=== PATIENT | male | born 1950 | race Caucasian/White ===

== ENCOUNTER 2016-05-18 09:53 | Inpatient (IN) | payer MEDICARE ==
[2016-05-18] VITALS (11 sets, daily range): BP systolic 75–136; BP diastolic 42–101; PULSE 74–124; RESP 12–24; O2SAT 89–100
[~2016-05-18] VITALS: Ht 190.5 cm; Wt 147.8 kg
[~2016-05-18 09:53] MED LIST: ALBU8.5H2 INH; ASPI325T32 PO; ATRV10T PO; CLOP75TA28 PO; HYDR-4003 PO; LISI10TA PO; METO-272 PO; OXYC1TAB24 PO
[2016-05-18] MEDS ORDERED: 0.9% Sodium Chloride 1,000 ML IV SCH ×2 (10:20→14:20)
--- NOTE | 2016-05-18 10:24 | ED.REPORT ---
HPI-Chest Pain 40 and Over Date of Service May 18, 2016 ED Provider: Vinayak Marroquin MD Mr. Louis is a 66 y/o man with history of CAD, peripheral artery disease, and lacunar infarct who presents today for worsening shortness of breath and chest pain for the past 3-4 days. His chest pain is retrosternal and intermittent that will radiate his back. He is short of breath at rest. He does not have chest pain right now. He has left flank pain. He has associated cough, diaphoresis, and he vomited once this morning. He feels fatigued. His ex- is with him and states that he had been sick and not feeling well for the past 6 weeks and has not gotten better. He has not had an appetite for the past month. He does not have fever, chills, palpitations, abdominal pain, diarrhea, dysuria, hematuria, numbness, or tingling. He denies blood in his stool. Pt requested pain medication for left flank pain. He had a coronary artery stent placed on 03/31/2016 in his LAD. Echocardiogram done on 04/01/2016 shows EF 55-60% and no valvular pathology. Pt is full code. Nursing Notes Stated Complaint: NO APPETITE/FEELING SICK Chief Complaint: General Complaint Nursing Notes Reviewed: Yes Allergies: Coded Allergies: Beer (Verified Allergy, Severe, Anaphylaxis, 03/31/16) Raisin (Verified Allergy, Severe, Anaphylaxis, 03/31/16) [place] Seed (Verified Allergy, Severe, Anaphylaxis, 03/31/16) Wine Spirit (Verified Allergy, Severe, Anaphylaxis, 03/31/16) Uncoded Allergies: cheetos (Allergy, Severe, Anaphylaxis, 02/07/10) Scheduled Aspirin (Aspirin) 325 Mg Tablet 325 MG PO DAILY Atorvastatin (Lipitor) 10 Mg/1 Tab Tablet 40 MG PO HS Clopidogrel (Clopidogrel) 75 Mg Tablet 75 MG PO DAILY Lisinopril (Lisinopril) 10 Mg Tablet 10 MG PO DAILY Metoprolol Succinate ER (Metoprolol Succinate ER) 50 Mg Tab.er.24h 50 MG PO DAILY Scheduled PRN Albuterol HFA (Proair HFA) 8.5 Gm Hfa.aer.ad 2 PUFFS INH Q4H PRN PRN For Wheezing Hydrocodone-Acetaminophen 5-325 mg (Hydrocodone-Acetaminophen 5-325 mg) 1 Each Tablet 2 TAB PO QID PRN PRN For Pain Miscellaneous Medications Ferrous Sulfate (Iron) 325 Mg Capsule.er 325 MG PO General Time Seen by MD: 10:05 Chief Complaint Shortness of breath Hx Obtained From: Patient Sudden in Onset?: No Associated with: Reports: Cough, non-productive, Diaphoresis, Lightheaded, Shortness of Breath, Vomiting, Denies: Fever, Numbness/Tingling, Palpitations Past Medical History Past Medical History CAD (stent in LAD on 03/31/16) Mcdonald's Palsy Hypertension Diabetes Probable COPD Peripheral arterial disease with prior stenting (left femoral) Stroke (lacunar) Past Surgical History Right hip surgery Gastric bypass Back surgery Smoking History Former Smoker Social History Alcohol Use: "Social" Drug Use: Denies drug use Ambulatory Status Independent Review of Systems Basic Review of Systems : No dysuria, No frequency Hematologic: No bleeding, No bruising Constitutional: Reports: Fatigue, Denies: Chills, Fever Respiratory: Reports: Non-productive cough, Shortness of breath Cardiovascular: Reports: Chest pain, Denies: Edema, Palpitations GI: Reports: Vomiting, Denies: Abdominal pain, Diarrhea Musculoskeletal: Reports: Back pain (chronic) Neurologic: Reports: Lightheaded, Denies: Numbness Physical Exam Initial Vital Signs Vital Signs (First) Date Time Temp Pulse Resp B/P Pulse Ox O2 Delivery O2 Flow Rate FiO2 05/18/16 09:57 36.2 124 24 89 Room Air 05/18/16 10:24 75/42 3 Initial VS: Reviewed Head / Eyes: Atraumatic, Normocephalic General/Constitutional: Awake, Alert Distress / Hydration: Positive: Distress moderate Respiratory / Chest: Breath sounds = bilat, No rales, No rhonchi, No wheezing Diminished Breath Sounds: Positive: Decreased bilateral Cardiovascular: Heart rate NL, Regular rhythm, Heart sounds NL, No gallop, No murmurs, No rubs Abdomen: Soft, Non-tender, No guarding, No rebound, BS normoactive Tenderness/Guarding/Rebound: Positive: Tender flank L Lower Extremity / Pelvis / MS: No swelling, Non-tender, No erythema cool Left Foot: Positive: Ecchymosis present (2nd toe) Interpretation & Diagnostics Interpretation & Diagnostics: CXR no acute cardiopulmonary changes CT abdomen and pelvis without contrast: IMPRESSION: 1. Multiple nonobstructing bilateral renal calculi, including 2 adjacent left renal pelvic calculi. No ureteral calcification, nor distention. 2. Large bowel containing intra-abdominal wall hernia, associated with mild distention of the colon proximal to the hernia, suggestive of low-grade obstruction. Dictated by: Ce Dhillon M.D. on 05/18/2016 at 13:09 Approved by: Ce Dhillon M.D. on 05/18/2016 at 13:15 Lab Results Interpretation Result Diagram: 05/18/16 1026 05/18/16 1421 Test 05/18/16 10:26 05/18/16 10:35 05/18/16 11:15 White Blood Count 15.1th/mm3 (3.8-10.1) Red Blood Count 4.67mil/mm3 (4.40-5.80) Hemoglobin 13.7g/dL (13.8-17.2) Hematocrit 42.7% (41.0-50.0) Mean Corpuscular Volume 91.4fL (81-100) Mean Corpuscular Hemoglobin 29.3pg (27.0-35.0) Mean Corpuscular Hemoglobin Concent 32.1% (32.0-37.0) Red Cell Distribution Width 14.3% (12.3-15.4) Platelet Count 233bil/L (150-400) Neutrophils (%) (Auto) 71.5% (40-74) Lymphocytes (%) (Auto) 21.1% (14-46) Monocytes (%) (Auto) 6.7% (4-12) Eosinophils (%) (Auto) 0.3% (0-5) Basophils (%) (Auto) 0.1% (0-3) Total Bilirubin 0.2mg/dL (0.0-1.2) Aspartate Amino Transf (AST/SGOT) 15U/L (0-50) Alanine Aminotransferase (ALT/SGPT) 20U/L (0-44) Alkaline Phosphatase 124U/L (25-160) Troponin T 0.013ug/L (0.0-0.011) Total Protein 8.9g/dL (6.4-8.4) Albumin 3.9g/dL (3.4-5.0) Magnesium Level 2.5mg/dL (1.6-2.6) Prealbumin 29mg/dL (20-40) Procalcitonin 0.18ng/mL (0.00-0.08) Urine Color Yellow (YELLOW) Urine Appearance Hazy (CLEAR,HAZY) Urine pH 5.0 (5.0-8.0) Urine Specific [place] 1.030 (1.003-1.035) Urine Protein 30mg/dL (NEG,TRACE) Urine Glucose (UA) Negativemg/dL (NEGATIVE) Urine Ketones Negativemg/dL (NEGATIVE) Urine Occult Blood Small (NEGATIVE) Urine Nitrite Negative (NEGATIVE) Urine Bilirubin Negative (NEGATIVE) Urine Urobilinogen Normalmg/dL (NORMAL) Urine Leukocyte Esterase Trace (NEGATIVE) Urine RBC 3-10/hpf (0-2) Urine WBC 6-10/hpf (0-5) Urine Epithelial Cells Occasional/hpf (NONE-MOD) Urine Crystals None seen (NONE SEEN) Urine Bacteria Moderate/hpf (NONE-FEW) Urine Hyaline Casts None/lpf (NONE) Urine Granular Casts None seen (NONE SEEN) Urine Waxy Casts None seen (NONE SEEN) Urine Red Blood Cell Casts None seen (NONE SEEN) Urine White Blood Cell Casts None seen (NONE SEEN) Urine Mucus None seen (None Seen) Urine Trichomonas None seen (NONE SEEN) Urine Yeast None (NONE SEEN) Urinalysis Comment None Urine Culture Reflexed Indicated Re-Eval/Medical Decision Med Decision/Clinical Course 1. shortness of breath and chest pain -Pt had LAD stent placed on 03/31/2016 -EKG does not show concerning ST segment changes -Venous blood gas shows pH 7.038, pCO2 37, HCO3 9.4 -Blood culture and urine culture performed and pending -Pt initially tachycardic and hypotensive. Pt given 2 L of normal saline with improvement -Elevated WBC -CXR no acute cardiopulmonary changes 2. acute renal failure -Pt has had a decreased appetite and oral intake for the past month -BUN 106, Cr 5.7 today compared to previous Cr 1.44 and BUN 33 on 04/02/16 -CT shows nonobstructing bilateral renal calculi -Pt had tenderness in left flank and given 25 mcg fentanyl IV and 1000 mg Tylenol IV for pain control 3. metabolic acidosis Consultation : Referral / Consult Name: Virgilio Kraus DO Consulted With: Nephrology Note: Dr. Kraus saw pt in the emergency department. Recommended D5 and bicarbonate fluids. DDx includes but not limited to: sepsis, acute heart failure, acute coronary syndrome, COPD exacerbation, bronchitis, pneumonia, pneumothorax, active bleeding, uremia Discharge & Departure Primary Impression: Acute renal failure Acute renal failure type: unspecified Qualified Code: N17.9 - Acute kidney failure, unspecified Additional Impressions: Metabolic acidosis Leukocytosis Leukocytosis type: unspecified Qualified Code: D72.829 - Elevated white blood cell count, unspecified Disposition: ADMITTED TO HOSPITAL (Dr. Luciano accepted admission) Transfer Accepted at: 13:04 Spoke with: Hospitalist (Dr. Luciano) Discharge Condition All VS Reviewed: Yes Condition: Improved Referrals: Luz Helton MD (PCP) Crit Care Except Billable Proc Time Spent: 30-74 minutes Services Performed: Patient management by me, Time spent at bedside, Reviewing test results, Reviewing imaging, Discussing patient care, Documentation in record Attending Statement The patient was seen and examined together with Dr. Galloway on 05/18/16 and I agree with the history, exam and plan as outlined in the note above. copies to: Luz Helton MD, Marissa L DO May 18, 2016 10:24 Vinayak Marroquin MD May 18, 2016 15:59 Note: Dr. Kraus saw pt in the emergency department. Recommended D5 and bicarbonate fluids. DDx includes but not limited to: sepsis, acute heart failure, acute coronary syndrome, COPD exacerbation, bronchitis, pneumonia, pneumothorax, active bleeding, uremia Discharge & Departure Primary Impression: Acute renal failure Acute renal failure type: unspecified Qualified Code: N17.9 - Acute kidney failure, unspecified Additional Impressions: Metabolic acidosis Leukocytosis Leukocytosis type: unspecified Qualified Code: D72.829 - Elevated white blood cell count, unspecified Disposition: ADMITTED TO HOSPITAL (Dr. Luciano accepted admission) Transfer Accepted at: 13:04 Spoke with: Hospitalist (Dr. Luciano) Discharge Condition All VS Reviewed: Yes Condition: Improved Referrals: Luz Helton MD (PCP) copies to: Luz Helton MD, Marissa L DO May 18, 2016 10:24
[2016-05-18 10:30] LABS: BASOPHILS % (AUTO) 0.1 % (0-3); EOSINOPHILS % (AUTO) 0.3 % (0-5); MONOCYTES % (AUTO) 6.7 % (4-12); Mean Corpuscular Hemoglobin 29.3 pg (27.0-35.0); Mean Corpuscular Volume 91.4 fL (81-100); NEUTROPHILS % (AUTO) 71.5 % (40-74); Platelet Count 233 bil/L (150-400)
[2016-05-18 10:56] LABS: TROPONIN T 0.013 ug/L (0.0-0.011)
--- NOTE | 2016-05-18 11:04 | ABG ---
DateTimeAnalyzed 10:55:00 -_ pH ____7.038 - pCO2 ___36.9__ -mmHg pO2 ___44.7__ -mmHg HCO3- ____9.4__ -mmol/L ABE __-20.7__ -mmol/L tHb ___12.6__ -g/dL O2Hb ___72.4__ -% COHb ____1.5__ -% MetHb ____1.0__ -% sO2 ___74.3__ -% FIO2 ___21.0__ -% Drawn By lab - Date/Time Notified____ 11:03:00 -_ Liter_Flow ____2.5__ -L/min Oxygen Device 1 NC - Notified By lw - Notified Whom ___Dr. Lopez - B 763 -mmHg tO2 ___12.9__ -Vol% Kameron test N/A -
[2016-05-18 11:08] LABS: Magnesium 2.4 mg/dL (1.6-2.6)
[2016-05-18 11:32] LABS: APPEARANCE,URINE HAZY (CLEAR,HAZY); COLOR,URINE YELLOW (YELLOW); OCCULT BLOOD,URINE SMALL (NEGATIVE); UROBILINOGEN,URINE NORMAL (NORMAL)
--- NOTE | 2016-05-18 12:10 | DRSVH ---
PROCEDURE: X-RAY CHEST ONE VIEW, PORTABLE ([id number]) INDICATIONS: shortness of breath, CP TECHNIQUE: One view of the chest was acquired. COMPARISON: [facility], CR, XR CHEST 1VW (PORTABLE), 03/31/2016, 9:51. FINDINGS: Surgical changes and devices: None. Lungs and pleura: No pleural effusions or pneumothorax. Lungs are clear. Mediastinum: Mediastinal contours appear normal. Heart size is normal. Bones and chest wall: No suspicious bony lesions. Overlying soft tissues appear unremarkable. IMPRESSION: No acute cardiopulmonary disease. Dictated by: Gonsalo Polo [facility] Interpreted: Yue Joyner MD on 05/18/2016 at 12:09 Transcribed by: MARIA TERESA on 05/18/2016 at 12:10 Approved by: Yue Joyner MD, PhD on 05/18/2016 at 16:25
[2016-05-18] MEDS ORDERED: Acetaminophen IV 1,000 MG in IV Premix 1 EACH IV ONE (12:15)
[2016-05-18] MEDS ORDERED: fentaNYL-PF 50 mCg/mL 2 mL Inj IVPUSH ONE (12:15)
[2016-05-18] MEDS ORDERED: FERR325C PO (12:41)
--- NOTE | 2016-05-18 13:17 | DRSVH ---
PROCEDURE: CT ABDOMEN AND PELVIS WITHOUT CONTRAST ([id number]) INDICATIONS: acute kidney failure TECHNIQUE: Noncontrast 5 mm thick sections acquired from the diaphragms to the symphysis. 5 mm coronal and sagi ttal reformats were then performed. For radiation dose reduction, the following was used: automated exposure control, adjustment of mA and/or kV according to patient size. COMPARISON: None. FINDINGS: Image quality: Excellent. ABDOMEN: Lung bases: Lung bases are clear. Heart size is normal. There is calcification of the coronary vas culature. Solid organs: Liver and spleen are normal in size. Gallbladder is surgically absent. Pancreas is n ormal in contours. No adrenal nodules. Kidneys are normal in size. No hydronephrosis. There are mul tiple adjacent calculi within the superior pole right kidney, largest of which measures 16 mm, remain beatrice of which measure less than 5 mm diameter. There are multiple calculi within the left renal superi or pole, interpolar kidney, and inferior pole, ranging in size from 3-5 mm. Within the left renal pel vis, there are 2 adjacent calculi measuring 7 mm and 8 mm. Peritoneum and bowel: The stomach is nondistended. Small bowel is nondistended. Right colectomy has b een performed. There is mild distention of the hepatic flexure of colon and proximal transverse colon . No free fluid or air. Nodes and vessels: No retroperitoneal or mesenteric adenopathy by size criteria. Aorta and inferior vena cava are normal in caliber. Miscellaneous: There is a 44 mm diameter anterior abdominal wall hernia containing a loop of transver se colon. There is no fat stranding within the hernia. PELVIS: Genitourinary: A Sweet catheter is present within the urinary bladder, which is decompressed. Miscellaneous: No inguinal hernias or adenopathy. Bones: No suspicious bony lesions. Right hip arthroplasty. Lumbosacral fusion. No vertebral body co mpression fractures. IMPRESSION: 1. Multiple nonobstructing bilateral renal calculi, including 2 adjacent left renal pelvic calculi. N o ureteral calcification, nor distention. 2. Large bowel containing intra-abdominal wall hernia, associated with mild distention of the colon p roximal to the hernia, suggestive of low-grade obstruction. Dictated by: Ce Dhillon M.D. on 05/18/2016 at 13:09 Approved by: Ce Dhillon M.D. on 05/18/2016 at 13:15
[2016-05-18] MEDS ORDERED: Alum-Mag Hydrox-Simeth 30 mL Suspension PO PRN (13:20)
[2016-05-18] MEDS ORDERED: SODIUM CHLORIDE IV ONE ×2 (13:20)
[2016-05-18] MEDS ORDERED: Polyethylene Glycol (PEG) 17 Gm Powder PO PRN (13:20)
[2016-05-18] MEDS ORDERED: Ondansetron 2 mg/mL 2 mL Inj IVPUSH PRN (13:20)
[2016-05-18] MEDS ORDERED: Albuterol HFA 60 Puff 8 Gm Inhaler INHALATION PRN (13:35)
[2016-05-18] MEDS ORDERED: Lactated Ringer's 1,000 ML IV ONE (13:40)
[2016-05-18] MEDS: cefTRIAXone Inj 1,000 MG in Dextrose 5% Minibag Plus 50 ML IV SCH (13:45)
[2016-05-18 14:29] LABS: Magnesium 2.5 mg/dL (1.6-2.6)
--- NOTE | 2016-05-18 14:31 | CONS ---
[address] [address] CONSULTATION REPORT PATIENT: MONICA SOLOMON : 1950 MR#: [id number] ADMIT: 05/18/2016 JOB ID: [id number] DATE OF SERVICE: 05/18/2016 RENAL CONSULTATION: HISTORY: The patient is a very pleasant 66-year-old, white male who was admitted to [facility] for generalized weakness and dizziness, and acute kidney injury. Renal consultation is sought for further evaluation of his acute kidney injury. 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 On reviewing his lab in August of last year his creatinine was 1.06. He presented with chest pain to the emergency department in the early mid March 2016, and at that time, his creatinine was approximately 1.5 mg/dL. He was taken to a catheterization laboratory and underwent a heart catheterization with stent placement in his left anterior descending. He was subsequently discharged and states he had done well. He is somewhat compliant with his medication and his followup. He states several weeks ago he began to have upper respiratory tract symptoms with cough and nasal congestion, which decreased his oral intake. He is overall condition continued to worsen, and he began to complain of some chest pain with shortness of breath for the last several days. He states that he has had a cough and diaphoresis and has intermittently had sputum productive of some mucopurulent quality. He feels quite tired and weak, and has had marked decrease in his oral intake for the last several weeks. He denies any urinary tract issues, fever, chills, abdominal pain, diarrhea, dysuria, hematuria, or increased thirst. At the time of admission, his EKG was unremarkable. His admitting electrolytes showed a sodium of 139, potassium 5.5, chloride of 111, CO2 of 8, BUN was 106, creatinine was 5.7, glucose was 164. Liver function studies were unremarkable. His albumin was 3.9. His troponin was mildly elevated at 0.013. He was markedly hypotensive at time of admission and was hypoxic. He responded to oxygen and 2 L of normal saline, and has had a marked improvement in his blood pressure. He denies a history of any prior renal problems. He denies history of any prostate problems, treatment for diabetes, hepatitis, lupus, rheumatoid arthritis, or malignancies. Furthermore, he denies a history of any difficulty with urination, dysuria, frequency, urgency, hematuria, proteinuria, recurrent urinary tract infections, renal lithiasis, or recent use of nonsteroidal anti-inflammatories. He states that he had frequently taken ibuprofen on a daily basis until several years ago when he began to take narcotic pain medications. I do have to add that he is somewhat cloudy with some of his more recent memory. PAST MEDICAL HISTORY: Significant as detailed above for coronary artery disease requiring stent placement, hypertension with hypertensive heart disease and hypertensive nephrosclerosis with diastolic dysfunction. His last echocardiogram done in March showed an ejection fraction of 55% with diastolic dysfunction. He has a history of peripheral vascular disease and undergone several stent placements. He has a history of prediabetes, history of lacunar infarct, history of hyperlipidemia. PAST SURGICAL HISTORY: Remarkable for right hip surgery, gastric bypass, laminectomy, and coronary artery disease with open stent placement. ALLERGIES: He is allergic to: 1. BEER. 2. RAISINS. 3. [place] SEEDS. 4. WINE. 5. CHEETOS. However, he does not recall any medicines that he is allergic to. SOCIAL HISTORY: He has a 70 pack-year history but quit a number of years ago. He does state he drinks ethanol occasionally but is unable to quantify it. He denies any drug use and states that he is retired. He has very limited activities of daily living because of his overall deconditioning and weakness. FAMILY HISTORY: Noncontributory. REVIEW OF SYSTEMS: As detailed above but also is positive for nocturia, morning fatigue and daytime somnolence which certainly raises the question of obstructive sleep apnea. PHYSICAL EXAMINATION: Revealed an obese 66-year-old, white male who was alert and oriented x3 and able to answers only simple questions. His blood pressure was 89/49 with a pulse of 84. HEENT examination is remarkable for markedly dry mucous membranes and slightly pale sclerae. Neck is supple without adenopathy, thyromegaly, or jugular venous distention. He did have evidence of mild acantholysis nigricans and multiple skin tags in the mantle area of the neck. Lungs showed increased AP diameter and he had evidence of Kussmaul respirations. His lung exam showed scattered end-expiratory wheezes but no rales or rhonchi were noted. Heart was regular and rhythmical, though somewhat distant because of the patient's body habitus. Abdomen was soft, with diminished bowel sounds. There were no epigastric bruits noted. There was no tenderness, rebound, guarding, masses, or hepatosplenomegaly. There was no suprapubic distention noted. Extremities did not show any evidence of clubbing, cyanosis, or edema. I did not appreciate any half and half nails. Skin turgor was diminished, and there was no evidence of any rashes. However, on his feet I did note some purplish discolorations over some of the toes and would make me concerned about the possibility of atheroembolic disease. His chemistries are detailed above. Of concern is his potassium, bicarbonate of 8, BUN and creatinine of 106 and 5.7, respectively. His white count is 15.1, hemoglobin 13.7, hematocrit 42.7. Red cell indices, platelet count and differential were normal. Urine drug screen was normal. Urinalysis showed a specific gravity of 1.030, pH was 5. Tests for protein and occult blood were positive. He had 3-10 RBC per high power field and 6-10 WBC per high power field. Urine chemistries were pending at time of this dictation. EKG showed a normal sinus rhythm with a normal axis. There were no acute changes, ST-T wave changes, or evidence of left ventricular hypertrophy. IMPRESSION: 1. Dehydration and hypotension secondary to poor oral intake and gastrointestinal losses. 2. Acute kidney injury secondary to dehydration and hypotension. 3. Increased anion gap and non-anion gap metabolic acidosis secondary to dehydration and hypotension. 4. Hypertension with hypertensive heart disease and hypertensive nephrosclerosis with diastolic dysfunction. 5. Hyperlipidemia. 6. Obstructive sleep apnea. 7. Prediabetes. 8. History of a lacunar infarct. RECOMMENDATION: 1. I would recommend switching his IV fluid at this point to D5 with three amps of sodium bicarbonate and run this initially at 150 mL/h. Once his systolic blood pressure approaches 120, we can then back down on his IV fluids. 2. He is scheduled to have a CT of the abdomen without contrast. I would be interested in seeing how his kidneys appear. 3. I would like to get a urine for eosinophils out of concern for atheroembolic disease. 4. I would like to get a hepatitis profile, uric acid, C4, C3 and a sed rate. I will schedule lab for the morning also. Once again, I would like to thank you for allowing me to participate in the care of this most pleasant and interesting patient. I will be following him closely with you.
--- NOTE | 2016-05-18 14:51 | PCM.HPMED ---
Subjective Date of Service May 18, 2016 Primary Provider: Admitting Physician: Tray Luciano MD Primary Care Physician: Luz Helton MD Attending Physician: Tray Luciano MD Chief Complaint: weakness and shortness of breath History of Present Illness: The patient is a 66 y/o man with history of CAD s/p stent x1 one month ago, peripheral artery disease, and lacunar infarct. He presented to the ED today for worsening shortness of breath and chest pain for the past 3-4 days. At time of encounter patent stated that his chest pain improved. Patient stated he continues to have left flank pain and hip pain described as sharp and non radiating, made worse with movement.Patient stated that this has been going on for one week starting with cough, chills, night sweats, fatigue and weakness. Additional symptoms include vomiting x 1 this morning, decreased appetite and poor hydration. Last meal was three days ago, last drink of water was one day ago. Patient denies chest pain, chest pressure, fever, headache, diarrhea, drinking unusual/new fluids, blood in his stool, dysuria, hematuria. His ex- is present and she stated that he had been sick for about four weeks after his stent and has progressively worsened over the past two weeks. She reports that she and her daughter check in on him once a week and noticed that he came down with a cold with symptoms of cough, runny nose, pain in his back between his shoulder blades. He had a coronary artery stent placed on 03/31/2016 in his LAD. Echocardiogram done on 04/01/2016 shows EF 55-60% and no valvular pathology. In the ED patient was given 2 1 L NS bolus of fluid IV, started on Ceftriaxone, Nephrology consult obtained. ABG pH 7.038, PCO2 36.9 pO2 44.7 HCO3 9.4, severe metabolic acidosis, with AG 20, hyperkalemia 5.5, mildly elevated troponin, no ST changes seen on EKG, UA showed presence of moderate bacteria and concentrated urine Review of Systems: ROS negative except as mentioned above in HPI Allergies Coded Allergies: Beer (Verified Allergy, Severe, Anaphylaxis, 03/31/16) Raisin (Verified Allergy, Severe, Anaphylaxis, 03/31/16) [place] Seed (Verified Allergy, Severe, Anaphylaxis, 03/31/16) Wine Spirit (Verified Allergy, Severe, Anaphylaxis, 03/31/16) Uncoded Allergies: cheetos (Allergy, Severe, Anaphylaxis, 02/07/10) Home Medications Aspirin (Aspirin) 325 Mg Tablet 325 MG PO DAILY Atorvastatin (Lipitor) 10 Mg/1 Tab Tablet 40 MG PO HS Clopidogrel (Clopidogrel) 75 Mg Tablet 75 MG PO DAILY Lisinopril (Lisinopril) 10 Mg Tablet 10 MG PO DAILY Metoprolol Succinate ER (Metoprolol Succinate ER) 50 Mg Tab.er.24h 50 MG PO DAILY PMH CAD (stent in LAD on 03/31/16) Mcdonald's Palsy Hypertension Diabetes Probable COPD Peripheral arterial disease with prior stenting (left femoral) Stroke (lacunar) Surgical History Right Hip arthroplasty Gastric bypass Back surgery s/p stent in LAD on 03/31/16 Family History No family history of cancer reported No family history of heart, lung, kidney disease Social History Occupation: retired Hx Alcohol Use: Yes (ONE MAYBE EVERY 2-3 MONTHS) Hx Substance Use: No (TAKING HYDROCODONE FOR BACK PAIN) Hx Tobacco Use: Yes (smoked 1-2 pack a day for > 40 yrs and quit 2 years ago) Smoking Status: Former Smoker Living Arrangement: Alone Exam Vital Signs Vital Sign - Last Date Time Temp Pulse Resp B/P Pulse Ox O2 Delivery O2 Flow Rate FiO2 05/18/16 13:28 85 12 87/49 99 Nasal Cannula 3 05/18/16 11:00 36.4 Exam General:Moderate distress, obese, well-developed, well-nourished, appropriately interactive HEENT: Normocephalic, atraumatic. External ears without defect. Pupils equal, round, and reactive to light and accommodation. Anicteric sclerae, extremely dry conjunctivae, and no lid lag. Oropharynx moderate erythema extremely dry moist mucosa, tongue is retracted, cracked and dry. Neck: Supple with full range of motion. No jugular venous distension. Flat neck veins. No bruits. No lymphadenopathy or thyromegaly. Significant skin tenting of neck Cardiovascular: Regular rate and rhythm with no murmurs, rubs, or gallops appreciated, Pulmonary: Wide A-P diameter, scant end expiratory wheezes, no wheezes or rhonchi. Normal respiratory effort with no use of accessory muscles. Abdomen: Bowel tones present. Soft, nontender, nondistended. No hepatosplenomegaly or masses appreciated. Erythema present over pannus Extremities: No clubbing, cyanosis, edema, or lymphadenopathy appreciated. strength 5/5 all extremities b/l Skin: Normal temperature, turgor, and texture; no rash, ulcers, or subcutaneous nodules appreciated. Neurological: Cranial nerves grossly intact. Normal muscle strength, tone, and bulk. Reflexes, coordination, and sensory function within normal limits. No known gait impairment. Psychiatric: Normal mood and affect. Alert and oriented to person, place, and time. : Sweet in place, draining minimal dark urine, tenderness to right inguinal are, no lymph node palpated. Lab and Diagnostics Result Diagram: 05/18/16 1026 05/18/16 1026 Additional Diagnostics: ABG pH ____7.038 - pCO2 ___36.9__ -mmHg pO2 ___44.7__ -mmHg HCO3- ____9.4__ -mmol/L Assessment & Plan The patient is a 66 y/o man with history of CAD s/p stent x1 one month ago, peripheral artery disease, and lacunar infarct. He presented to the ED today for worsening shortness of breath and chest pain for the past 3-4 days. Admitted for treatment of JUD, high AG and hyperchloremic metabolic acidosis, possible UTI. 1. Acute Kidney Failure, - Likely started as prerenal azotemia due to dehydration, however there is now likely progression to intrarenal acute renal failure ashlee to sepsis or toxic insult. -CT Abdomen and pelvis showed multiple nonobstructing bilateral renal calculi, including 2 adjacent left renal pelvic calculi, with no distention. - Aggressive fluid hydration, 2 L NS given in ED continue with two more 1 L bolus - UA specifici gravity 1.030, moderate bacteria - Monitory BMP Q2 x 3 - Start tele - Renal Lytes ordered, FENA 0.2 % consistent with prerenal - random urine creatine and protein ordered - urine tox screen ordered, pending - monitor hyperkalemia, patient may need emergent dialysis -Nephrology consulted and following patient, their time and recommendations are appreciated. 2. Hyperchloremic and AG metabolic acidosis, acute - Inital HCO3 8, ABG pH 7.038, PCO2 36.9 pO2 44.7 HCO3 9.4, severe metabolic acidosis, with AG 20, Cl 111 - Trend BMP Q 2x 3 - Continue to monitor serum HCO3 if <10 at repeat BMP, repeat ABG - Start Bicarbonate drip - Nephrology consulted and following patient, their time and recombinations are appreciated. 3. UTI, acute - UA specifici gravity 1.030, moderate bacteria - UA sent for culture, pending - Start Ceftriaxone 1 g IV QD - Continue fluids as above 4. Hyperkalemia, acute - Initial labs showed serum K at 5.5 - Repeat BMP as above - 30 mg Kayexalate PO given - Continue to monitor 5. History of CAD s/p LAD stent x1, chronic - Inital labs showed mildly elevated troponin - EKG showed no significant ST changes - Trend Q 6 x 2 - Continue Clopidogrel 75 mg BID - Continue to monitor Patient admitted under inpatient status with stay likely greater than 2 midnights due to need for treatment and severity of JUD, high AG and hyperchloremic metabolic acidosis, possible UTI. Time spent 60 minutes coordinating care Attending Statement patient was seen and examined with Dr Evans ,I agree with history,exam, impression and plan as outlined above copies to: Luz eHlton MD, AARON J DO May 18, 2016 14:38 Tray Luciano MD May 18, 2016 19:12
[2016-05-18] MEDS ORDERED: Calcium GLUCOnate 10% (Gm) 1 Gm/10 mL Inj IVPUSH PRN (15:20)
[2016-05-18] MEDS ORDERED: Insulin Human REGular-Omnicell 100 Unit/mL IV ONE (15:20)
[2016-05-18] MEDS ORDERED: 0.9% Sodium Chloride 1,000 ML IV ONE (15:35)
[2016-05-18] MEDS: Sodium Bicarb(50 mEq) 8.4% Inj 150 MEQ in Dextrose 5% 1,000 ML IV SCH ×2 (17:02→22:32)
[2016-05-18] MEDS: Heparin 5,000 Unit/mL Inj SUBQ SCH ×2 (17:53→20:42)
--- NOTE | 2016-05-18 18:00 | NUR ---
Admission note Report received from [facility] pharmacist in charge owner. Pt arrived to room 2022 via bed from ED at about 1400. Pt oriented to room, use of call light. Policies and procedure explained. Pt verbalized understanding. Pt alert and oriented to person, place and time. Pt had 2 IV that was discontinued upon arrival, one infiltrated the other was occluded and had to be taken out. IV therapy called to start IV. Now Pt has two patent IVs, one in the left hand and the other in the right wrist. Per report pt had a total of 2L NS bolus in ER. New order for 2 more Liters, 1st liter of NS done, second bag hanging at this time. Sodium Bicarb going at 150ml/hr. Pt given 30mg of Kayexalate for high potassium. Daughter in room helping with admitting and med rec. Sweet draining jenifer small amount of jenifer urine per gravity. Tele verified at bedside, per mental telepathist pt in SR 70s at this time. Ongoing care.
[2016-05-18] MEDS ORDERED: Calcium GLUCOnate 10% (Gm) 1 Gm/10 mL Inj IV ONE (18:15)
[2016-05-18] MEDS: HYDROcodone-APAP 5-325 mg Tablet PO PRN ×2 (19:25→23:45)
[2016-05-18] MEDS ORDERED: 0.9% Sodium Chloride 1,000 ML ONE (20:30)
[2016-05-19] VITALS (8 sets, daily range): BP systolic 104–129; BP diastolic 42–69; PULSE 67–99; RESP 18–22; O2SAT 94–95
--- NOTE | 2016-05-19 01:22 | NUR ---
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 Pt continues to complain of lower back and hip pain. Pt received PRN hydrocodone x2 with good results. Pt accidently pulled out left hand IV catheter. Bicarb running @ 150ml/hr in right wrist. Pt continues to have low BP, last vitals 93/59. Pt on bedrest for low BP and is incontinent of bowels. No other issues noted at this time. Addendum: 05/19/16 at 0638 by AROLDO SALINAS RN OUTPUT Output 1600 mls
[2016-05-19 02:09] LABS: Hepatitis A Antibody IgM Negative (Negative); Hepatitis B Core Antibody IgM Negative (Negative)
[2016-05-19 02:57] LABS: BASOPHILS % (AUTO) 0.2 % (0-3); EOSINOPHILS % (AUTO) 0.7 % (0-5); MONOCYTES % (AUTO) 8.1 % (4-12); NEUTROPHILS % (AUTO) 69.6 % (40-74); Platelet Count 153 bil/L (150-400)
[2016-05-19 03:37] LABS: Phosphorus 5.5 mg/dL (2.5-4.9)
[2016-05-19] MEDS: HYDROcodone-APAP 5-325 mg Tablet PO PRN (04:57)
[2016-05-19] MEDS: MeTOProlol XL 50 mg ER24 Tablet PO SCH (08:30)
[2016-05-19] MEDS: Sodium Bicarb(50 mEq) 8.4% Inj 150 MEQ in Dextrose 5% 1,000 ML IV SCH ×3 (08:53→19:47)
[2016-05-19] MEDS: Heparin 5,000 Unit/mL Inj SUBQ SCH ×2 (09:08→16:39)
[2016-05-19 10:34] LABS: OSMOLALITY, URINE 384 mOs/kH2O (250-1200)
--- NOTE | 2016-05-19 12:14 | PCM.PNMED ---
Subjective Date of Service May 19, 2016 Subjective The patient has had some improvement in his laboratory values and his began to have some increased urine output. Unfortunately he remains quite somnolent and when I observed him while he was sleeping I notice some irregular breathing and intermittent apneic episodes. The patient offers no new complaints including states that he is feeling better. I asked him if he once again if he had a history of any renal lithiasis and he denied this. He is taking a bit more and orally and denies any nausea, vomiting, diarrhea, or shortness of breath. He had 2400 mL's of fluids in yesterday and his wounds are continuing. In the first 8 hours today he has had 1180 ML's of urine out. His sodium is 143, potassium 4.3, chloride 110, bicarbonate of 10, BUN and creatinine were 99 and 4.58. His PSA and hepatitis profile were both normal sugars is 5.5 and his complements were also normal. A CT of the abdomen was remarkable for multiple calcific calculi scattered throughout his kidneys which are nonobstructing. Exam Vital Signs Vital Sign - Last Date Time Temp Pulse Resp B/P Pulse Ox O2 Delivery O2 Flow Rate FiO2 05/19/16 12:06 36.3 94 18 118/42 95 Room Air 05/19/16 08:53 2.00 Intake and Output 05/18/16 05/18/16 05/19/16 Cumulative From/Thru 15:00 23:00 07:00 05/18/16 09:57 - 05/19/16 06:10 Intake Total 2000 ml 400 ml 1908 ml 4308 ml Output Total 100 ml 1180 ml 1280 ml Balance 1900 ml 400 ml 728 ml 3028 ml Intake Oral 400 ml 318 ml 718 ml IV Total 2000 ml 1590 ml 3590 ml Output Urine Total 100 ml 1180 ml 1280 ml # Bowel Movements 3 3 Exam Neck is supple without adenopathy, thyromegaly, or venous distention. Lungs showed a few rhonchi but otherwise are clear. Heart is regular rhythm with soft systolic murmur. Abdomen is soft with diminished bowel sounds. There is no tenderness rebound guarding masses or hepatosplenomegaly. Extremities do not show any evidence of any clubbing, cyanosis, or edema. Skin turgor remains decreased. Lab and Diagnostics Result Diagram: 05/19/16 0250 05/19/16 0250 Additional Diagnostics ABG pH ____7.038 - pCO2 ___36.9__ -mmHg pO2 ___44.7__ -mmHg HCO3- ____9.4__ -mmol/L Assessment & Plan Impression #1 acute kidney injury due to acute tubular necrosis aggravated by severe dehydration. #2 renal lithiasis #3 hypertension with hypertensive heart disease hypertensive nephrosclerosis #4 a mixed anion gap and non-anion gap metabolic acidosis Recommendations #1 I would continue his 5% dextrose with bicarbonate. Obviously we need to continue to follow his lab. Virgilio Kraus DO May 19, 2016 12:14 - Start tele - Renal Lytes ordered, FENA 0.2 % consistent with prerenal - random urine creatine and protein ordered - urine tox screen ordered, pending - monitor hyperkalemia, patient may need emergent dialysis -Nephrology consulted and following patient, their time and recommendations are appreciated. 2. Hyperchloremic and AG metabolic acidosis, acute - Inital HCO3 8, ABG pH 7.038, PCO2 36.9 pO2 44.7 HCO3 9.4, severe metabolic acidosis, with AG 20, Cl 111 - Trend BMP Q 2x 3 - Continue to monitor serum HCO3 if <10 at repeat BMP, repeat ABG - Start Bicarbonate drip - Nephrology consulted and following patient, their time and recombinations are appreciated. 3. UTI, acute - UA specifici gravity 1.030, moderate bacteria - UA sent for culture, pending - Start Ceftriaxone 1 g IV QD - Continue fluids as above 4. Hyperkalemia, acute - Initial labs showed serum K at 5.5 - Repeat BMP as above - 30 mg Kayexalate PO given - Continue to monitor 5. History of CAD s/p LAD stent x1, chronic - Inital labs showed mildly elevated troponin - EKG showed no significant ST changes - Trend Q 6 x 2 - Continue Clopidogrel 75 mg BID - Continue to monitor Patient admitted under inpatient status with stay likely greater than 2 midnights due to need for treatment and severity of JUD, high AG and hyperchloremic metabolic acidosis, possible UTI. Virgilio Kraus DO May 19, 2016 12:14
[2016-05-19] MEDS: cefTRIAXone Inj 1,000 MG in Dextrose 5% Minibag Plus 50 ML IV SCH (13:53)
--- NOTE | 2016-05-19 14:38 | PCM.PNMED ---
Subjective Date of Service May 19, 2016 Subjective The patient is a 66 y/o man with history of CAD s/p stent x1 one month ago, peripheral artery disease, and lacunar infarct. He presented to the ED today for worsening shortness of breath and chest pain for the past 3-4 days. Admitted for treatment of prerenal JUD, high AG and hyperchloremic metabolic acidosis, UTI. Hospital Day 2 Overnight: nursing reported that patient was hypotensive and he pulled out his IV. Today: Patient is laying in bed upright with daughter in room. Patient stated that he is feeling better than he did yesterday. Patient noted that two weeks ago he saw his physician general internal medicine doctor who started him on antibiotics. Patient could not recall the name of antibiotics. He is actively complaining of left hip pain. Patient denies fever, chest pain, chest pressure, dysuria. ROS negative except for mentioned above. Exam Vital Signs Vital Sign - Last Date Time Temp Pulse Resp B/P Pulse Ox O2 Delivery O2 Flow Rate FiO2 05/19/16 05:06 36.3 92 20 109/66 95 Room Air 05/18/16 16:21 3.00 Intake and Output 05/18/16 05/18/16 05/19/16 Cumulative From/Thru 15:00 23:00 07:00 05/18/16 09:57 - 05/19/16 06:10 Intake Total 2000 ml 400 ml 1908 ml 4308 ml Output Total 100 ml 1180 ml 1280 ml Balance 1900 ml 400 ml 728 ml 3028 ml Intake Oral 400 ml 318 ml 718 ml IV Total 2000 ml 1590 ml 3590 ml Output Urine Total 100 ml 1180 ml 1280 ml # Bowel Movements 3 3 Exam General:Moderate distress, obese, well-developed, well-nourished, appropriately interactive HEENT: Normocephalic, atraumatic. External ears without defect. Pupils equal, round, and reactive to light and accommodation. Anicteric sclerae, extremely dry conjunctivae, and no lid lag. Oropharynx moderate erythema extremely dry moist mucosa, tongue is retracted, cracked and dry. Neck: Supple with full range of motion. No jugular venous distension. Flat neck veins. No bruits. No lymphadenopathy or thyromegaly. Significant skin tenting of neck Cardiovascular: Regular rate and rhythm with no murmurs, rubs, or gallops appreciated, Pulmonary: Wide A-P diameter, scant end expiratory wheezes, no wheezes or rhonchi. Normal respiratory effort with no use of accessory muscles. Abdomen: Bowel tones present. Soft, nontender, nondistended. No hepatosplenomegaly or masses appreciated. Erythema present over pannus Extremities: No clubbing, cyanosis, edema, or lymphadenopathy appreciated. strength 5/5 all extremities b/l Skin: Normal temperature, turgor, and texture; no rash, ulcers, or subcutaneous nodules appreciated. Neurological: Cranial nerves grossly intact. Normal muscle strength, tone, and bulk. Reflexes, coordination, and sensory function within normal limits. No known gait impairment. Psychiatric: Normal mood and affect. Alert and oriented to person, place, and time. : Sweet in place draining yellow urine. IVs and Medications Medications Reviewed: Medications were reviewed in detail Lab and Diagnostics Result Diagram: 05/19/16 02505/19/16 0250 Additional Diagnostics ABG pH ____7.038 - pCO2 ___36.9__ -mmHg pO2 ___44.7__ -mmHg HCO3- ____9.4__ -mmol/L Assessment & Plan The patient is a 66 y/o man with history of CAD s/p stent x1 one month ago, peripheral artery disease, and lacunar infarct. He presented to the ED today for worsening shortness of breath and chest pain for the past 3-4 days. Admitted for treatment of prerenal JUD, high AG and hyperchloremic metabolic acidosis, UTI. Hospital Day 2 1. Acute Kidney Failure, - Likely started as prerenal azotemia due to dehydration, however there is now likely progression to intrarenal acute renal failure ashlee to sepsis or toxic insult. -CT Abdomen and pelvis showed multiple nonobstructing bilateral renal calculi, including 2 adjacent left renal pelvic calculi, with no distention. - Aggressive fluid hydration, 2 L NS given in ED continue with two more 1 L bolus - UA specific gravity 1.030, moderate bacteria - Monitor BMP Q12 - Start tele - Renal Lytes ordered, FENA 0.2 % consistent with prerenal disease - urine tox screen ordered, pending - monitor hyperkalemia, patient may need emergent dialysis -Nephrology consulted and following patient, their time and recommendations are appreciated. -no indication for emergent dialysis at this point 2. Mixed hyperchloremic and AG metabolic acidosis, improving - Inital HCO3 8, ABG pH 7.038, PCO2 36.9 pO2 44.7 HCO3 9.4, severe metabolic acidosis, with AG 20, Cl 111 - BMP this AM showed bicarb of 10 - Recheck BMP in afternoon today - Continue to monitor serum HCO3 if <10 at repeat BMP, repeat ABG - Continue Bicarbonate drip - Nephrology consulted and following patient, their time and recombinations are appreciated. 3. UTI, acute, present on admission - UA specific gravity 1.030, moderate bacteria - UA sent for culture, pending - Urine microscopy showed presence of EOs, Dr. Kraus will review the slide. This may indicate acute interstitial nephritis and a need for steroid therapy - Continue Ceftriaxone 1 g IV QD - Continue fluids as above 4. Hyperkalemia, acute - Initial labs showed serum K at 5.5 - Repeat BMP as above - 30 mg Kayexalate PO given x 1 05/19/16 - Continue to monitor 5. History of CAD s/p LAD stent x1, chronic - Initial labs showed mildly elevated troponin - EKG showed no significant ST changes - Trend Q 6 x 2 - Continue Clopidogrel 75 mg BID - Continue to monitor DVT prophylaxis: Clopidogrel 75 mg BID CODE STATUS: FULL CODE Disposition: Patient will likely discharge to home with resolution of JUD, UTI, Acidosis. Attending Statement patient seen and examined with Dr Chaidez .I agree with the history,exam, impression and plan as outlined above BHARAT CHAIDEZ DO May 19, 2016 06:43 Tray Luciano MD May 19, 2016 14:49
--- NOTE | 2016-05-19 15:56 | NUR ---
Social Work: Initial Assessment D: Per EMR review, pt is a 66 year old male admitted for Acute Renal Failure, Metabolic Acidosis. Pt is [employer]. PCP is Luz Helton MD. NOK is Sol Olivaresning, Dtr, . Advanced directives information provided to pt by TOOL MAINTENANCE WORKER. Readmit score is moderate, 5/8. TOOL MAINTENANCE WORKER met with pt at bedside. Sw role explained. See initial assessment. Pt lives in [place], alone. He uses a walker and cane at base. He continues to drive. Pt has a history at [facility] and had home health but cannot remember through which company. Pt has been on bedrest during admission and ambulatory abilities cannot be determined at this time. TOOL MAINTENANCE WORKER spoke with pt's daughter, Sol who confirms the aforementioned information and states that prior to admission pt was I and stable with ambulation. Case management contact information provided to pt and daughter. TOOL MAINTENANCE WORKER requested PT evaluation during am rounds; this has not yet been ordered. TOOL MAINTENANCE WORKER to request this again tomorrow. A: Pt who was previously I P: Evolving; TOOL MAINTENANCE WORKER to continue to follow pt's care and progress with PT. AISHA Gutierrez Addendum: 05/19/16 at 1616 by DAVID SNELL Amended: Links added.
--- NOTE | 2016-05-19 18:33 | NUR ---
Drowsy Pt somnolent this shift, awakens easily and answers questions appropriately while awake and then drifts back to sleep quickly. Pt oriented X3. Pt more alert towards end of shift and ate some dinner while family at bedside. Pt requested pain medication at this time, Pt asleep upon returning to the room, pain medication withheld.
--- NOTE | 2016-05-19 18:43 | NUR ---
BP Pt remains hypotensive this am, instructed to page MD when SBP >120 by NOC RN, Pt's BPs:104/51, 118/42, and then 129/68 at end of shift, MD paged with BP prior to shift change, oncoming NOC RN made aware.
[2016-05-20] VITALS (9 sets, daily range): BP systolic 103–152; BP diastolic 60–81; PULSE 64–91; RESP 18–20; O2SAT 92–96
[2016-05-20] MEDS: Heparin 5,000 Unit/mL Inj SUBQ SCH ×3 (00:47→16:52)
[2016-05-20] MEDS: Sodium Bicarb(50 mEq) 8.4% Inj 150 MEQ in Dextrose 5% 1,000 ML IV SCH (03:30)
[2016-05-20 03:45] LABS: Mean Corpuscular Hemoglobin 29.1 pg (27.0-35.0); Mean Corpuscular Volume 88.7 fL (81-100)
--- NOTE | 2016-05-20 05:12 | NUR ---
Renal, Neuro Vs as noted. Arouses easily tonight to minor stimulation and remains oriented. Blood pressure 115 and 103 systolically. D5+50meq sodium bicarb/l continues at 150ml/h. Sweet cath in place with adequate uop. Denies pain or discomforts over night.
[2016-05-20] MEDS: MeTOProlol XL 50 mg ER24 Tablet PO SCH (09:20)
[2016-05-20] MEDS ORDERED: SODIUM BICARB IV SCH (10:41)
[2016-05-20] MEDS ORDERED: DEXTROSE 5% IV SCH (10:41)
--- NOTE | 2016-05-20 10:47 | NUR ---
[employer] witnessed [facility]'s signature. NAVI McraeSW
[2016-05-20] MEDS: Nystatin 100,000 Unit/Gm 15 Gm Powder TOPICAL SCH ×2 (11:43→20:05)
--- NOTE | 2016-05-20 12:31 | PCM.PNMED ---
Subjective Date of Service May 20, 2016 Subjective Patient continues to have some slow improvement. His BUN and creatinine continued to decline to a level LXXIII and 3.03 today. He remains acidotic and his sodium has increased to 150. His blood pressure has also increased with his rehydration. Personally reviewed the patient's urinalysis and microscopic exam and he does have some mild to moderate eosinophils. This certainly raises the possibility of either acute interstitial nephritis or atheroembolic disease which I feel the latter is probably more likely. Otherwise he states that he has a much better appetite with less nausea, vomiting, or diarrhea. He denies any chest pain, shortness of breath, cough or wheezing. This morning his sodium is 150, potassium 3.6, chloride 118, CO2 of 18, BUN and creatinine were 73 and 3.03. His hemoglobin A1c is also significantly elevated and I feel that we need to have more [id number] coverage by insulin of his diabetes. Exam Vital Signs Vital Sign - Last Date Time Temp Pulse Resp B/P Pulse Ox O2 Delivery O2 Flow Rate FiO2 05/20/16 10:20 80 05/20/16 09:14 36.8 20 152/80 95 Room Air 05/19/16 08:53 2.00 Intake and Output 05/19/16 05/19/16 05/20/16 Cumulative From/Thru 15:00 23:00 07:00 05/18/16 09:57 - 05/20/16 05:53 Intake Total 2102 ml 2154 ml 8564 ml Output Total 1500 ml 1800 ml 4580 ml Balance 602 ml 354 ml 3984 ml Intake Oral 500 ml 418 ml 1636 ml IV Total 1602 ml 1736 ml 6928 ml Output Urine Total 1500 ml 1800 ml 4580 ml # Bowel Movements 3 Exam HEENT examination once again is remarkable for pale sclera. His mucous membranes are much more moist. Neck is supple without adenopathy, thyromegaly, or drug or venous distention. Lungs are clear to auscultation though somewhat diminished. Heart was regular rhythm with a soft systolic murmur. Abdomen was soft with diminished bowel sounds. There was some diffuse tympany to percussion no tenderness, rebound, guarding, masses, or hepatosplenomegaly. Skin turgor remains slightly diminished though this is improved also. There is no evidence of any edema. Lab and Diagnostics Result Diagram: 05/20/160 05/20/16 0310 Additional Diagnostics ABG pH ____7.038 - pCO2 ___36.9__ -mmHg pO2 ___44.7__ -mmHg HCO3- ____9.4__ -mmol/L Assessment & Plan Impression #1 acute kidney injury secondary to dehydration and hypotension which is resolving #2 Metabolic acidosis #3 hypertension with hypertensive heart disease and hypertensive nephrosclerosis #4 obstructive sleep apnea #5 type II diabetes with possible diabetic nephropathy #6 metabolic syndrome Recommendation #1 discuss the case with hospitalist and I feel we should change his maintenance IV fluid to half-normal saline at 80 ML . In addition I feel we should have [id number] insulin coverage with both short and long acting insulin as he is clearly diabetic. Virgilio Kraus DO May 20, 2016 12:31
--- NOTE | 2016-05-20 13:27 | PCM.PNMED ---
Subjective Date of Service May 20, 2016 Subjective The patient is a 66 y/o man with history of CAD s/p stent x1 one month ago, peripheral artery disease, and lacunar infarct. He presented to the ED today for worsening shortness of breath and chest pain for the past 3-4 days. Admitted for treatment of prerenal JUD, high AG and hyperchloremic metabolic acidosis, UTI. Hospital Day 3 Overnight: No acute events reported Today: Patient reported that he is feeling better and his left hip pain is doing better as well. Patient stated that he had one very lose bowel movement with associated abdominal cramping. Patient denies fever, chills, myalgias, headache, chest pain, chest pressure. ROS negative except for mentioned above. Exam Vital Signs Vital Sign - Last Date Time Temp Pulse Resp B/P Pulse Ox O2 Delivery O2 Flow Rate FiO2 05/20/16 05:46 89 05/20/16 05:45 36.7 18 114/64 92 Room Air 05/19/16 08:53 2.00 Intake and Output 05/19/16 05/19/16 05/20/16 Cumulative From/Thru 15:00 23:00 07:00 05/18/16 09:57 - 05/20/16 05:53 Intake Total 2102 ml 2154 ml 8564 ml Output Total 1500 ml 1800 ml 4580 ml Balance 602 ml 354 ml 3984 ml Intake Oral 500 ml 418 ml 1636 ml IV Total 1602 ml 1736 ml 6928 ml Output Urine Total 1500 ml 1800 ml 4580 ml # Bowel Movements 3 Exam General:Moderate distress, obese, well-developed, well-nourished, appropriately interactive HEENT: Normocephalic, atraumatic. External ears without defect. Pupils equal, round, and reactive to light and accommodation. Anicteric sclerae, Mucosa moist and pink Neck: Supple with full range of motion. No jugular venous distension. No bruits. No lymphadenopathy or thyromegaly. Significant skin tenting of neck Cardiovascular: Regular rate and rhythm with no murmurs, rubs, or gallops appreciated, Pulmonary: Wide A-P diameter, scant end expiratory wheezes, no wheezes or rhonchi. Normal respiratory effort with no use of accessory muscles. Sonours breath sounds when sleeping Abdomen: Bowel tones present. Soft, nontender, nondistended. No hepatosplenomegaly or masses appreciated. Erythema present over pannus Extremities: No clubbing, cyanosis, edema, or lymphadenopathy appreciated. strength 5/5 all extremities b/l Skin: Normal temperature, turgor, and texture; no rash, ulcers, or subcutaneous nodules appreciated. Neurological: Cranial nerves grossly intact. Normal muscle strength, tone, and bulk. Reflexes, coordination, and sensory function within normal limits. No known gait impairment. Psychiatric: Normal mood and affect. Alert and oriented to person, place, and time. : Jolley in place draining yellow urine. IVs and Medications Medications Reviewed: Medications were reviewed in detail Lab and Diagnostics Result Diagram: 05/20/1630905/20/16 031 Additional Diagnostics ABG pH ____7.038 - pCO2 ___36.9__ -mmHg pO2 ___44.7__ -mmHg HCO3- ____9.4__ -mmol/L Assessment & Plan The patient is a 66 y/o man with history of CAD s/p stent x1 one month ago, peripheral artery disease, and lacunar infarct. He presented to the ED today for worsening shortness of breath and chest pain for the past 3-4 days. Admitted for treatment of prerenal JUD, high AG and hyperchloremic metabolic acidosis, UTI. Hospital Day 3 1. Acute Kidney Failure, present on admission, improving - Likely started as prerenal azotemia due to dehydration, however there is now likely progression to intrarenal acute renal failure ashlee to sepsis or toxic insult. -CT Abdomen and pelvis showed multiple nonobstructing bilateral renal calculi, including 2 adjacent left renal pelvic calculi, with no distention. - Creatine 3.03 BUN 73 05/20/16 - Monitor BMP Q12 - Continue tele - Renal Lytes ordered, FENA 0.2 % consistent with prerenal disease - Urine tox screen ordered, negative - Nephrology consulted and following patient, their time and recommendations are appreciated. on bicarb 50meq in 1 L D5w at 80ml/h,will probably stop it tomorrow if continues to improve 2. Hypernatremia, acute, not present on admission - 05/20/16 Na 150 - Per nephrology we will change his maintenance IV fluid to D5W at 80 ML - Nephrology consulted and following patient, their time and recommendations are appreciated. 3. Controlled type II diabetes, chronic, present on admission - Likely underlying element of diabetic nephropathy contributing to JUD - Dose insulin by weight Lantus HS 10 units, AM Lantus 10 units - Monitor insulin requirements daily, adjust basal insulin and preprandial as needed - Continue with medium correctional scale 4. Cellulitis of abdominal pannus, acute, present on admission - Continue nystatin cream BID - Continue to monitor 5. C. Diff Colitis, acute, not present on admission - Patient noted abdominal cramping and loose watery stool. With recent antibiotic coverage it is likely this was part of his normal dafne that is now presenting. - Stool sent for PCR positive for c.dif - Start Flagyl PO 500 mg TID for 10 days - continue to monitor 6. Possible DAVID, chronicity unknown, present on admission - Ordered nocturnal pulse ox to monitor for desaturations at night - Monitor for apneic events - Patient may need use of CPAP at night - Recommend outpatient sleep study 7.Mixed hyperchloremic and AG metabolic acidosis, present on admission, improving - Inital HCO3 8, ABG pH 7.038, PCO2 36.9 pO2 44.7 HCO3 9.4, severe metabolic acidosis, with AG 20, Cl 111 - BMP this AM showed bicarb of 18 05/20/16 - Recheck BMP QD - Per nephrology change his maintenance IV fluid to half-normal saline at 80 ML - Discontinue Bicarbonate drip, - Nephrology consulted and following patient, their time and recombinations are appreciated. 8.UTI, acute, present on admission, improving - UA specific gravity 1.030, moderate bacteria - UA sent for culture, no growth to date - Urine microscopy showed presence of EOs, review of slide showed minimal EOs, no steroid therapy indicated - Discontinue Ceftriaxone 1 g IV QD - Continue fluids as above -will remove jolley tmrw 9. Hyperkalemia, acute, resolved - Initial labs showed serum K at 5.5 - 05/20/16 K 3.6 - Repeat BMP as above - 30 mg Kayexalate PO given x 1 05/19/16 - Continue to monitor 9. Hypertension, chronic, present on admission - Continue Metoprolol succinate 50 mg BID - Continue to monitor 10 History of CAD s/p LAD stent x1, chronic - Initial labs showed mildly elevated troponin - EKG showed no significant ST changes - Trended troponin, trended down - Continue Clopidogrel 75 mg BID - Continue to monitor DVT prophylaxis: Clopidogrel 75 mg BID CODE STATUS: FULL CODE Disposition: Patient will likely discharge to home within 48 hours on po flagyl if JUD continues to improve Attending Statement patient seen and examined with Dr Chaidez .I agree with the history,exam, impression and plan as outlined above BHARAT CHAIDEZ DO May 20, 2016 06:40 Tray Luciano MD May 20, 2016 13:46
[2016-05-20] MEDS ORDERED: Glucose 40% Oral Gel 15 Gm Tube PO PRN ×2 (13:30→13:35)
[2016-05-20] MEDS: Insulin LISPRO 300 Unit/3 mL Inj SUBQ SCH ×2 (16:50→20:05)
[2016-05-20] MEDS: HYDROcodone-APAP 5-325 mg Tablet PO PRN (17:29)
--- NOTE | 2016-05-20 17:44 | NUR ---
Evaluation completed. Please go to "Notes" then click on "Assessments and Notes" (bottom left corner of screen). Then select appropriate discipline tab on top of screen.
--- NOTE | 2016-05-20 19:22 | NUR ---
C-Diff/Hypernatremia Pt started having diarrhea this am, sample collected/sent to lab, MD notified, stool PCR ordered, result came back as positive, enteric precautions initiated, MD notified, Pt started on PO flagyl. Pt's Na levels in the 147 - 150 range since yesterday, MD ordered IVF changed from bicarb at 150mL/Hr to 1/2 NS at 80, BMP ordered, Pt's Na came back at 147 down from 150, MD ordered 1/2 NS to be decreased to 40mL/Hr with instruction to stop IVF and notify MD if any neuro changes or if Na come backs 135 or lower, oncoming NOC RN made aware.
[2016-05-20] MEDS: Insulin GLARgine 100 Unit/mL Syringe SUBQ SCH (20:05)
--- NOTE | 2016-05-20 22:35 | NUR ---
LOOSE STOOLS Pt A&Ox3, but slightly drowsy. Pt cooperative with care, denies pain @ this time, vitals stable. Pt had loose stools earlier in the day, sample was sent by day shift, positive for C-diff. Pt on enteric precautions, pt wears a brief, but was able to use the bedpan successfully x2 with liquid stool. No other issues noted at this time.
[2016-05-21] VITALS (9 sets, daily range): BP systolic 114–144; BP diastolic 71–84; PULSE 57–70; RESP 20–24; O2SAT 95–98
[2016-05-21] MEDS: Heparin 5,000 Unit/mL Inj SUBQ SCH ×3 (00:56→17:06)
--- NOTE | 2016-05-21 01:37 | NUR ---
POTASSIUM Pt had a K+ of 3.3 and creatinine of 2.47. Per K+/Mag protocol pt received K+ chloride 20 MEq PO x1.
[2016-05-21] MEDS ORDERED: Potassium Chloride 20 mEq SR Tab(K 3 - 3.7 & Cr 2.1 - 2.9) PO ONE (01:40)
[2016-05-21 03:41] LABS: BASOPHILS % (AUTO) 0.2 % (0-3); MONOCYTES % (AUTO) 11.4 % (4-12); Mean Corpuscular Hemoglobin 29.4 pg (27.0-35.0); Mean Corpuscular Volume 89.3 fL (81-100); NEUTROPHILS % (AUTO) 51.9 % (40-74); Platelet Count 159 bil/L (150-400)
[2016-05-21] MEDS: Insulin LISPRO 300 Unit/3 mL Inj SUBQ SCH ×4 (08:00→20:43)
[2016-05-21] MEDS ORDERED: Potassium Chloride 20 mEq SR Tablet PO ONE ×2 (08:00→13:00)
[2016-05-21] MEDS ORDERED: Insulin GLARgine 100 Unit/mL Syringe SUBQ SCH (08:30)
[2016-05-21] MEDS: HYDROcodone-APAP 5-325 mg Tablet PO PRN ×2 (08:32→17:21)
[2016-05-21] MEDS: MeTOProlol XL 50 mg ER24 Tablet PO SCH (08:33)
[2016-05-21] MEDS: Nystatin 100,000 Unit/Gm 15 Gm Powder TOPICAL SCH ×2 (08:33→20:42)
--- NOTE | 2016-05-21 13:00 | PCM.PNMED ---
Subjective Date of Service May 21, 2016 Subjective Patient continues to improve. He offers no new complaints and is eating without any difficulties. His intake and output for the last 24 hours are 4089 and 3600 out. His sodium is improved to 148, potassium 3.3, chloride 114, bicarbonate 21, BUN and creatinine were 50 and 2.23. Exam Vital Signs Vital Sign - Last Date Time Temp Pulse Resp B/P Pulse Ox O2 Delivery O2 Flow Rate FiO2 05/21/16 12:52 36.6 68 20 139/84 98 Room Air 05/19/16 08:53 2.00 Intake and Output 05/20/16 05/20/16 05/21/16 Cumulative From/Thru 15:00 23:00 07:00 05/18/16 09:57 - 05/21/16 06:29 Intake Total 1935 ml 823 ml 22924 ml Output Total 1800 ml 1553 ml 7933 ml Balance 135 ml -730 ml 3389 ml Intake Oral 920 ml 300 ml 2856 ml IV Total 1015 ml 523 ml 8466 ml Output Urine Total 1800 ml 1550 ml 7930 ml Stool Total 3 ml 3 ml # Bowel Movements 4 7 Exam Neck is supple without adenopathy, thyromegaly, or drug venous distention. Lungs are clear to auscultation. Heart was regular with soft systolic murmur. Abdomen was soft but slightly distended. There was no tenderness or rebound guarding masses or hepatosplenomegaly noted. Skin turgor is good and there is no evidence of any rashes. Lab and Diagnostics Result Diagram: 05/21/1633405/21/16 033 Additional Diagnostics ABG pH ____7.038 - pCO2 ___36.9__ -mmHg pO2 ___44.7__ -mmHg HCO3- ____9.4__ -mmol/L Assessment & Plan Impression #1 acute kidney injury secondary to dehydration and hypotension which is resolving. #2 Metabolic acidosis which is resolving, #3 #4 hypertension with hypertensive heart disease and hypertensive nephrosclerosis with diastolic dysfunction #5 hypokalemia. To resolution of his acute kidney injury #6 obstructive sleep apnea #7 type II diabetes Recommendations #1 I would like to continue him on his IV fluids and supplement his potassium today. Virgilio Kraus DO May 21, 2016 13:00
--- NOTE | 2016-05-21 15:40 | PCM.PNMED ---
Subjective Date of Service May 21, 2016 Subjective Hiro Louis is a 66 year old man with history significant for CAD s/p stent x1 one month ago, peripheral artery disease, and lacunar infarct. He presented to the ED for worsening shortness of breath and chest pain for the past 3-4 days. Admitted for treatment of prerenal JUD, high AG and hyperchloremic metabolic acidosis, and UTI. Hospital Day 4. Overnight: No acute events reported. Today: Patient states that he feels he is not back to his baseline yet. He states he still feels weak. He denies any abdominal pain and notes 2-3 bowel movements overnight. Patient denies fever, chills, myalgias, headache, chest pain, chest pressure. ROS negative except for mentioned above. Exam Vital Signs Vital Sign - Last Date Time Temp Pulse Resp B/P Pulse Ox O2 Delivery O2 Flow Rate FiO2 05/21/16 13:26 Room Air 05/21/16 12:52 36.6 68 20 139/84 98 05/19/16 08:53 2.00 Intake and Output 05/20/16 05/20/16 05/21/16 Cumulative From/Thru 15:00 23:00 07:00 05/18/16 09:57 - 05/21/16 06:29 Intake Total 1935 ml 823 ml 25007 ml Output Total 1800 ml 1553 ml 7933 ml Balance 135 ml -730 ml 3389 ml Intake Oral 920 ml 300 ml 2856 ml IV Total 1015 ml 523 ml 8466 ml Output Urine Total 1800 ml 1550 ml 7930 ml Stool Total 3 ml 3 ml # Bowel Movements 4 7 Exam General: Moderate distress, obese, well-developed, well-nourished, appropriately interactive HEENT: Normocephalic, atraumatic. External ears without defect. Pupils equal, round, and reactive to light and accommodation. Anicteric sclerae, Mucosa moist and pink Neck: Supple with full range of motion. No jugular venous distension. No bruits. No lymphadenopathy or thyromegaly. Significant skin tenting of neck Cardiovascular: Regular rate and rhythm with no murmurs, rubs, or gallops appreciated, Pulmonary: Wide A-P diameter, scant end expiratory wheezes, no wheezes or rhonchi. Normal respiratory effort with no use of accessory muscles. Abdomen: Bowel tones present. Soft, obese, nontender, nondistended. No hepatosplenomegaly or masses appreciated. Erythema present over pannus Extremities: No clubbing, cyanosis, edema, or lymphadenopathy appreciated. Skin: Normal temperature, turgor, and texture; no rash, ulcers, or subcutaneous nodules appreciated. Neurological: Cranial nerves grossly intact. Normal muscle strength, tone, and bulk. Reflexes, coordination, and sensory function within normal limits. No known gait impairment. Psychiatric: Normal mood and affect. Alert and oriented to person, place, and time. : Sweet in place draining yellow urine. IVs and Medications Medications Reviewed: Medications were reviewed in detail Lab and Diagnostics Result Diagram: 05/21/1633405/21/16334 X-Rays, CTs and MRIs CT ABDOMEN AND PELVIS WITHOUT CONTRAST IMPRESSION: 1. Multiple nonobstructing bilateral renal calculi, including 2 adjacent left renal pelvic calculi. No ureteral calcification, nor distention. 2. Large bowel containing intra-abdominal wall hernia, associated with mild distention of the colon proximal to the hernia, suggestive of low-grade obstruction. Dictated by: Ce Dhillon M.D. on 05/18/2016 at 13:09 Additional Diagnostics [facility] DateTimeAnalyzed 10:55:00 -_ pH ____7.038 - pCO2 ___36.9__ -mmHg pO2 ___44.7__ -mmHg HCO3- ____9.4__ -mmol/L Assessment & Plan Hiro Louis is a 66 year old man with history significant for CAD s/p stent x1 one month ago, peripheral artery disease, and lacunar infarct. He presented to the ED for worsening shortness of breath and chest pain for the past 3-4 days. Admitted for treatment of prerenal JUD, high AG and hyperchloremic metabolic acidosis, and UTI. Hospital Day 4. 1. Acute Kidney Failure, present on admission, active, improving - Likely started as prerenal azotemia due to dehydration, however there is now likely progression to intrarenal acute renal failure - CT abdomen and pelvis showed multiple nonobstructing bilateral renal calculi, including 2 adjacent left renal pelvic calculi, with no distention. - Creatine continues to improve - Monitor BMP daily - FENA 0.2 % consistent with prerenal disease - Urine tox screen negative - Nephrology consulted and following patient, their time and recommendations are appreciated. - Bicarb drip stopped - Per nephrology will continue IV hydration and monitoring 2. Euvolemic hypernatremia, acute, not present on admission - Etiology uncertain - Nephrology consulted and following patient, their time and recommendations are appreciated. 3. Controlled type II diabetes, chronic, present on admission - Likely underlying element of diabetic nephropathy contributing to JUD - Dose insulin by weight Lantus HS 10 units - Monitor insulin requirements daily, adjust basal insulin and preprandial as needed - Continue with medium correctional scale 4. Intertrigo, acute, present on admission - Continue nystatin cream BID - Continue to monitor 5. C. Diff colitis, acute, not present on admission - Patient noted abdominal cramping and loose watery stool. With recent antibiotic coverage it is likely this was part of his normal dafne that is now presenting. - Stool PCR positive for C. Diff - Flagyl PO 500 mg TID for 10 days started 05/20 - continue to monitor, currently <6 BM in 24 hours 6. Possible DAVID, chronicity unknown, present on admission - Ordered nocturnal pulse ox to monitor for desaturations at night - Monitor for apneic events - Patient may need use of CPAP at night - Recommend outpatient sleep study 7.Mixed hyperchloremic and AG metabolic acidosis, present on admission, improving - Initial HCO3 8, ABG pH 7.038, PCO2 36.9 pO2 44.7 HCO3 9.4, severe metabolic acidosis, with AG 20, Cl 111 - Recheck BMP QD - Per nephrology change his maintenance IV fluid to half-normal saline at 80 ML - Discontinued Bicarbonate drip - Nephrology consulted and following patient, their time and recombinations are appreciated 8.UTI, acute, present on admission, improving - UA specific gravity 1.030, moderate bacteria - UA sent for culture, no growth to date - Urine microscopy showed presence of EOs, review of slide showed minimal EOs, no steroid therapy indicated - Discontinue Ceftriaxone 1 g IV QD - Continue fluids as above - Sweet D/C'ed 9. Hyperkalemia, acute, resolved - Initial labs showed serum K at 5.5 - 05/20/16 K 3.6 - Repeat BMP as above - 30 mg Kayexalate PO given x 1 05/19/16 - Continue to monitor 9. Hypertension, chronic, present on admission - Continue Metoprolol succinate 50 mg BID - Continue to monitor 10 History of CAD s/p LAD stent x1, chronic - Initial labs showed mildly elevated troponin - EKG showed no significant ST changes - Troponin trended down - Continue Clopidogrel 75 mg BID - Continue to monitor DVT prophylaxis: Clopidogrel 75 mg BID CODE STATUS: FULL CODE Disposition: Patient will likely discharge to home within 48 hours on PO Flagyl ask JUD continues to improve. Attending Statement patient seen and examined with Dr Rojas .I agree with the history,exam, impression and plan as outlined above Rachel Rojas DO May 21, 2016 15:18 Tray Luciano MD May 21, 2016 16:31
--- NOTE | 2016-05-21 18:35 | NUR ---
Jolley Pt's jolley catheter removed at ~1710 today per MD order, Pt supplied with urinal and advanced nursing professor made aware, Pt verbalized that he would be able to use urinal, no void prior to shift change, Pt denies bladder discomfort.
[2016-05-21] MEDS: Insulin GLARgine 100 Unit/mL Syringe SUBQ SCH (20:43)
[2016-05-22] VITALS (8 sets, daily range): BP systolic 121–163; BP diastolic 72–89; PULSE 58–87; RESP 12–23; O2SAT 95–97
[2016-05-22] MEDS: Heparin 5,000 Unit/mL Inj SUBQ SCH ×3 (01:15→18:41)
--- NOTE | 2016-05-22 02:05 | NUR ---
OUTPUT Pt recently had jolley removed @ 1710 by day nurse. Pt has voided 900 ml in the urinal as of 020. Pt denies any burning or discomfort while voiding urine. Pt continues to have loose stools. Pt able to use bedpan x2 with no incontinent episodes as of 020.
[2016-05-22 03:56] LABS: BASOPHILS % (AUTO) 0.3 % (0-3); EOSINOPHILS % (AUTO) 3.2 % (0-5); MONOCYTES % (AUTO) 8.9 % (4-12); Mean Corpuscular Hemoglobin 28.8 pg (27.0-35.0); Mean Corpuscular Volume 89.8 fL (81-100); NEUTROPHILS % (AUTO) 53.6 % (40-74); Platelet Count 161 bil/L (150-400)
[2016-05-22 04:18] LABS: Magnesium 1.6 mg/dL (1.6-2.6); Phosphorus 2.1 mg/dL (2.5-4.9)
[2016-05-22] MEDS: Insulin LISPRO 300 Unit/3 mL Inj SUBQ SCH ×4 (08:00→20:40)
[2016-05-22] MEDS: MeTOProlol XL 50 mg ER24 Tablet PO SCH (08:25)
[2016-05-22] MEDS: Nystatin 100,000 Unit/Gm 15 Gm Powder TOPICAL SCH ×2 (08:26→20:31)
--- NOTE | 2016-05-22 13:31 | NUR ---
Wound Care [facility] Received wound care eval order for wounds to pannus fold. Patient with multiple skin folds and scars to abdomen. Anti-fungal powder present to all skin folds. No open areas noted except at center abdomen at base of horizontal skin fold and longitudinal scar.Open area measures 0.3cmL x 0.1cmW with no depth. Wound base 100% slough. Patient with no redness periwound or drainage noted. Cleaned with NS, patted dry. Placed folded 4x4 to allow air circulation to skin fold. Recommend continue with anti-fungal powder and 4x4. Patient also with open area inside skin fold to left groin measuring 7cm L x 0.4cmW with no depth. 100% red wound base. Wound with no drainage and anti-fungal powder present. Recommend continued anti-fungal powder to all skin folds.
[2016-05-22] MEDS ORDERED: METR500T PO (15:55)
[2016-05-22] MEDS: HYDROcodone-APAP 5-325 mg Tablet PO PRN (16:00)
--- NOTE | 2016-05-22 16:00 | PCM.DIMED ---
Merline Galloway DO 05/22/16 1600: Discharge Instructions Date of Service May 22, 2016 Dates of Hospitalization May 18, 2016 at 13:15 Diet Heart Healthy Activity Limited until seen by PCP Call your provider Fever or Chills, Shortness of breath, Bleeding, Chest pain, Vomitting, Excessive diarrhea, Weakness (unilateral) Patient Instructions Continue to take the metronidazole antibiotics for your diarrhea for 7 more days starting today when you get home. Do not drink alcohol while taking this medication. It is important that you continue to take all of the antibiotics. Remember to wash your hands after you use the bathroom with soap and water. People who come in contact with you should also wash their hands with soap and water. I have sent the metronidazole to the pharmacy for you. Continue all other medications as prescribed. Make sure you eat 3 meals each day and drink a lot of water throughout the day. Try to drink at least 8 glasses of water each day. Make sure to follow up with your primary care provider within 1 week to review your medications and your health. Return to the hospital if your appetite decreases, you are not eating or drinking anything, you have abdominal pain, or have decreased urination. Follow-up Provider: Luz Helton MD Follow-up with PCP in: 1 week Benjamin Scott MD 05/24/16 0832: Discharge Instructions Attending's Statement The patient was seen and examined together with Dr. Galloway on 05/23/2016 and I agree with the history, exam and plan as outlined in the note above. . Merline Galloway DO May 22, 2016 16:00 Benjamin Scott MD May 24, 2016 08:32
--- NOTE | 2016-05-22 16:58 | PCM.PNMED ---
Subjective Date of Service May 22, 2016 Subjective Hiro Louis is a 66 year old man with history significant for CAD s/p stent x1 one month ago, peripheral artery disease, and lacunar infarct. He presented to the ED for worsening shortness of breath and chest pain for the past 3-4 days. Admitted for treatment of prerenal JUD, high AG and hyperchloremic metabolic acidosis, and UTI. Hospital Day 5. Overnight: 2 loose bowel movements and Sweet catheter removed. Today: Patient states that he feels better today. He continues to have left hip pain relieved by pain medication. He does not have denies fever, chills, chest pain, chest pressure, shortness of breath, abdominal pain, dysuria, nausea, vomiting, or diarrhea. ROS negative except for mentioned above. Exam Vital Signs Vital Sign - Last Date Time Temp Pulse Resp B/P Pulse Ox O2 Delivery O2 Flow Rate FiO2 05/22/16 15:49 Room Air 05/22/16 12:37 36.5 65 20 139/77 97 05/19/16 08:53 2.00 Intake and Output 05/21/16 05/21/16 05/22/16 Cumulative From/Thru 15:00 23:00 07:00 05/18/16 09:57 - 05/22/16 06:06 Intake Total 941 ml 300 ml 13327 ml Output Total 1050 ml 1200 ml 33127 ml Balance -109 ml -900 ml 2380 ml Intake Oral 620 ml 300 ml 3776 ml IV Total 321 ml 8787 ml Output Urine Total 1050 ml 1200 ml 57934 ml Stool Total 3 ml # Voids 3 3 # Bowel Movements 1 1 9 Exam General: Moderate distress, obese, well-developed, well-nourished, appropriately interactive HEENT: Normocephalic, atraumatic. External ears without defect. Pupils equal, round, and reactive to light and accommodation. Anicteric sclerae, Mucosa moist and pink Neck: Supple with full range of motion. No jugular venous distension. No bruits. No lymphadenopathy or thyromegaly. Cardiovascular: Regular rate and rhythm with no murmurs, rubs, or gallops appreciated, Pulmonary: Wide A-P diameter, scant end expiratory wheezes, no wheezes or rhonchi. Normal respiratory effort with no use of accessory muscles. Abdomen: Bowel tones present. Soft, obese, nontender, nondistended. No hepatosplenomegaly or masses appreciated. Erythema present over pannus Extremities: No clubbing, cyanosis, edema, or lymphadenopathy appreciated. Skin: Normal temperature, turgor, and texture; no rash, ulcers, or subcutaneous nodules appreciated. Neurological: Cranial nerves grossly intact. Normal muscle strength, tone, and bulk. Reflexes, coordination, and sensory function within normal limits. No known gait impairment. Psychiatric: Normal mood and affect. Alert and oriented to person, place, and time. IVs and Medications Medications Reviewed: Medications were reviewed in detail Lab and Diagnostics Result Diagram: 05/22/16 0320 05/22/16 1355 X-Rays, CTs and MRIs CT ABDOMEN AND PELVIS WITHOUT CONTRAST IMPRESSION: 1. Multiple nonobstructing bilateral renal calculi, including 2 adjacent left renal pelvic calculi. No ureteral calcification, nor distention. 2. Large bowel containing intra-abdominal wall hernia, associated with mild distention of the colon proximal to the hernia, suggestive of low-grade obstruction. Dictated by: Ce Dhillon M.D. on 05/18/2016 at 13:09 Additional Diagnostics [facility] DateTimeAnalyzed 10:55:00 -_ pH ____7.038 - pCO2 ___36.9__ -mmHg pO2 ___44.7__ -mmHg HCO3- ____9.4__ -mmol/L Assessment & Plan Hiro Louis is a 66 year old man with history significant for CAD s/p stent x1 one month ago, peripheral artery disease, and lacunar infarct. He presented to the ED for worsening shortness of breath and chest pain for the past 3-4 days. Admitted for treatment of prerenal JUD, high AG and hyperchloremic metabolic acidosis, and UTI. Hospital Day 5. 1. Acute Kidney Failure, present on admission, active, improving - Likely started as prerenal azotemia due to dehydration, however there is now likely progression to intrarenal acute renal failure - CT abdomen and pelvis showed multiple nonobstructing bilateral renal calculi, including 2 adjacent left renal pelvic calculi, with no distention. - Creatine continues to improve, today 1.85 - Monitor BMP daily - FENA 0.2 % consistent with prerenal disease - Urine tox screen negative - Nephrology consulted and following patient, their time and recommendations are appreciated. - Bicarb drip stopped 2. Euvolemic hypernatremia, acute, not present on admission - Etiology uncertain - Sodium 150 was this morning and decreased to 148 this afternoon - Nephrology consulted and following patient, their time and recommendations are appreciated. - Per nephrology will continue and encouraged PO hydration and monitor sodium level. 3. Controlled type II diabetes, chronic, present on admission - Likely underlying element of diabetic nephropathy contributing to JUD - HgbA1c 6.4% as of 05/19/16 - Dose insulin by weight Lantus HS 10 units - Monitor insulin requirements daily, adjust basal insulin and preprandial as needed - Continue with medium correctional scale 4. Intertrigo, acute, present on admission - Continue nystatin cream BID - Continue to monitor 5. C. Diff colitis, acute, not present on admission - Patient noted abdominal cramping and loose watery stool. With recent antibiotic coverage it is likely this was part of his normal dafne that is now presenting. - Stool PCR positive for C. Diff - Flagyl PO 500 mg TID for 10 days started 05/20 - continue to monitor, currently 2 bowel movements overnight and patient denies abdominal pain today 6. Possible DAVID, chronicity unknown, present on admission - Ordered nocturnal pulse ox to monitor for desaturations at night - Monitor for apneic events - Patient may need use of CPAP at night - Recommend outpatient sleep study 7.Mixed hyperchloremic and AG metabolic acidosis, present on admission, improving - Initial HCO3 8, ABG pH 7.038, PCO2 36.9 pO2 44.7 HCO3 9.4, severe metabolic acidosis, with AG 20, Cl 111 - Recheck BMP QD - Discontinued Bicarbonate drip and maintenance fluids - Nephrology consulted and following patient, their time and recombinations are appreciated 8.UTI, acute, present on admission, improving - UA specific gravity 1.030, moderate bacteria - UA sent for culture, no growth to date - Urine microscopy showed presence of EOs, review of slide showed minimal EOs, no steroid therapy indicated - Discontinue Ceftriaxone 1 g IV QD - Kee D/C'ed on 05/21/2016 9. Hyperkalemia, acute, resolved - Initial labs showed serum K at 5.5 - 05/416 K 3.6 - Repeat BMP as above - 30 mg Kayexalate PO given x 1 05/19/16 - Continue to monitor 9. Hypertension, chronic, present on admission - Continue Metoprolol succinate 50 mg BID - Continue to monitor 10 History of CAD s/p LAD stent x1, chronic - Initial labs showed mildly elevated troponin - EKG showed no significant ST changes - Troponin trended down - Continue Clopidogrel 75 mg BID - Continue to monitor DVT prophylaxis: Clopidogrel 75 mg BID CODE STATUS: FULL CODE Disposition: Patient will likely be discharged to home tomorrow when patient has transportation home and he will be on PO Flagyl to complete a 10 day regimen as JUD continues to improve. Attending Statement The patient was seen and examined together with Dr. Galloway on 05/22/2016 and I agree with the history, exam and plan as outlined in the note above. . Merline Galloway DO May 22, 2016 16:58 Benjamin Scott MD May 22, 2016 20:35
--- NOTE | 2016-05-22 19:09 | NUR ---
Shift notation Pt up with PT and ambulated to chair for breakfast. Pt c/o nausea with movement. Refused nausea medication. No other complaints during shift. Pt c/o pain in hips 11/23. 2 Tabs Valentine given with relief. Pain upon reassessment at -08/23. Pt states that is acceptable.
[2016-05-22] MEDS: Insulin GLARgine 100 Unit/mL Syringe SUBQ SCH (20:39)
[2016-05-23 02:06] VITALS: BP 132/79; PULSE 63; RESP 14; O2SAT 96
[2016-05-23] MEDS: Heparin 5,000 Unit/mL Inj SUBQ SCH ×2 (02:09→08:30)
--- NOTE | 2016-05-23 02:47 | NUR ---
Activity/ stooling: PT a/ox3. Vitals stable, pt denies any pain. pt sleeping throughout majority of the night. Up with SBA and FWW to BR- loose yellow/ green stools overnight. Care ongoing.
[2016-05-23 04:11] LABS: BASOPHILS % (AUTO) 0.1 % (0-3); EOSINOPHILS % (AUTO) 2.9 % (0-5); MONOCYTES % (AUTO) 9.5 % (4-12); Mean Corpuscular Hemoglobin 29.5 pg (27.0-35.0); Mean Corpuscular Volume 90.1 fL (81-100); NEUTROPHILS % (AUTO) 55.8 % (40-74); Platelet Count 176 bil/L (150-400)
[2016-05-23] MEDS ORDERED: Potassium Chloride Oral 20 mEq SR Tab(K 3 - 3.7 & Creat < 2) PO ONE (05:05)
[2016-05-23] MEDS: Insulin LISPRO 300 Unit/3 mL Inj SUBQ SCH (08:00)
[2016-05-23 08:32] VITALS: PULSE 59
[2016-05-23 08:58] VITALS: BP 140/78; PULSE 65; RESP 20; O2SAT 97
[2016-05-23] MEDS: MeTOProlol XL 50 mg ER24 Tablet PO SCH (09:03)
[2016-05-23] MEDS: HYDROcodone-APAP 5-325 mg Tablet PO PRN (09:04)
[2016-05-23] MEDS: Nystatin 100,000 Unit/Gm 15 Gm Powder TOPICAL SCH (09:09)
[2016-05-23] MEDS ORDERED: METR500T PO (09:15)
--- NOTE | 2016-05-23 09:53 | NUR ---
Discharge: Pt d/c'd home at 0950. Taken off unit per [employer] in w/c with all of his belongings. Stated verbal understanding to d/c medication list, care notes and instructions, and f/u information with provider.
--- NOTE | 2016-05-23 20:28 | PCM.DC.MED ---
Discharge Summary Date of Service May 23, 2016 Dates of Hospitalization Date of Hospital Admission May 18, 2016 at 13:15 Date of Discharge: May 23, 2016 Providers: Admitting Physician: Tray Alejandra MD Primary Care Physician: Luz Helton MD Attending Physician: Tray Alejandra MD Diagnosis at Time of Discharge Diagnosis at Time of Discharge 1. Acute Kidney Failure 2. Euvolemic hypernatremia 3. Controlled type II diabetes 4. Intertrigo 5. C. Difficile colitis 6. Possible obstructive sleep apnea 7.Mixed hyperchloremic and anion gap metabolic acidosis 8.Urinary tract infection 9. Hyperkalemia 9. Hypertension 10 History of coronary artery disease status post left anterior descending artery stent x1 Procedures XRay, CTs & MRIs CT ABDOMEN AND PELVIS WITHOUT CONTRAST IMPRESSION: 1. Multiple nonobstructing bilateral renal calculi, including 2 adjacent left renal pelvic calculi. No ureteral calcification, nor distention. 2. Large bowel containing intra-abdominal wall hernia, associated with mild distention of the colon proximal to the hernia, suggestive of low-grade obstruction. Dictated by: Ce Dhillon M.D. on 05/18/2016 at 13:09 Other Diagnostics [facility] DateTimeAnalyzed 10:55:00 -_ pH ____7.038 - pCO2 ___36.9__ -mmHg pO2 ___44.7__ -mmHg HCO3- ____9.4__ -mmol/L Brief History From the history and physical performed by Dr. Augustine Evans on 05/18/2016: The patient is a 66 y/o man with history of CAD s/p stent x1 one month ago, peripheral artery disease, and lacunar infarct. He presented to the ED today for worsening shortness of breath and chest pain for the past 3-4 days. At time of encounter patent stated that his chest pain improved. Patient stated he continues to have left flank pain and hip pain described as sharp and non radiating, made worse with movement.Patient stated that this has been going on for one week starting with cough, chills, night sweats, fatigue and weakness. Additional symptoms include vomiting x 1 this morning, decreased appetite and poor hydration. Last meal was three days ago, last drink of water was one day ago. Patient denies chest pain, chest pressure, fever, headache, diarrhea, drinking unusual/new fluids, blood in his stool, dysuria, hematuria. His ex- is present and she stated that he had been sick for about four weeks after his stent and has progressively worsened over the past two weeks. She reports that she and her daughter check in on him once a week and noticed that he came down with a cold with symptoms of cough, runny nose, pain in his back between his shoulder blades. He had a coronary artery stent placed on 03/31/2016 in his LAD. Echocardiogram done on 04/01/2016 shows EF 55-60% and no valvular pathology. In the ED patient was given 2 1 L NS bolus of fluid IV, started on Ceftriaxone, Nephrology consult obtained. ABG pH 7.038, PCO2 36.9 pO2 44.7 HCO3 9.4, severe metabolic acidosis, with AG 20, hyperkalemia 5.5, mildly elevated troponin, no ST changes seen on EKG, UA showed presence of moderate bacteria and concentrated urine. Hospital Course Hiro Louis is a 66 year old man with history significant for coronary artery disease status post stent one month ago, peripheral artery disease, and lacunar infarct. He presented to the emergency department for worsening shortness of breath and chest pain for the past 3-4 days. Admitted for treatment of prerenal acute kidney injury, high anion gap and hyperchloremic metabolic acidosis, and urinary tract infection 1. Acute Kidney Failure, present on admission. Improved. - Likely started as prerenal azotemia due to dehydration, however there it had likely progression to intrarenal acute renal failure - CT abdomen and pelvis showed multiple nonobstructing bilateral renal calculi, including 2 adjacent left renal pelvic calculi, with no distention. - Creatinine continued to improve, today 1.85 - Monitored basic metabolic panel daily - FENA 0.2 % was consistent with prerenal disease - Urine toxic screen was negative - Nephrology consulted and followed patient, their time and recommendations were appreciated. - Bicarbonate drip was stopped. 2. Euvolemic hypernatremia, acute, not present on admission. - Etiology uncertain, likely secondary to decreased oral fluid intake - Sodium 148 was this morning - Nephrology consulted and followed patient, their time and recommendations are appreciated. - Patient was encouraged to increase his oral hydration. 3. Controlled type II diabetes, chronic, present on admission. - Likely underlying element of diabetic nephropathy contributing to acute kidney injury - HgbA1c was 6.4% as of 05/19/16 - Dosed insulin by weight of Lantus HS 10 units and adjusted basal insulin and preprandial as needed - A medium correctional scale was used. 4. Intertrigo, acute, present on admission. Improved. - Patient was given nystatin cream twice per day for the affected area 5. C. Difficile colitis, acute, not present on admission. Active. - Patient noted abdominal cramping and loose watery stool. With recent antibiotic coverage it is likely this was part of his normal dafne that is now presenting. - Stool PCR positive for C. Diff - Flagyl PO 500 mg TID for 10 days started 05/20 - continue to monitor, currently 2 bowel movements overnight and patient denies abdominal pain today 6. Possible obstructive sleep apnea, chronicity unknown, present on admission. - No recorded oxygen desaturations overnight - Patient may need use of CPAP at night in the future - Recommended outpatient sleep study 7.Mixed hyperchloremic and anion gap metabolic acidosis, present on admission, improving - Initial HCO3 8, ABG pH 7.038, PCO2 36.9 pO2 44.7 HCO3 9.4, severe metabolic acidosis, with anion gap of 20, Cl 111 - Rechecked basic metabolic panel daily - Discontinued Bicarbonate drip and maintenance fluids - Nephrology consulted and followed patient, their time and recombinations were appreciated. 8.Urinary tract infection, acute, present on admission, improving - Urine analysis specific gravity 1.030, moderate bacteria - Sent for culture, no growth to date - Urine microscopy showed presence of eosinophils. A review of slide showed minimal eosinophils, so no steroid therapy was indicated. - Discontinued Ceftriaxone 1 g IV daily. - Sweet discontinued on 05/21/2016 9. Hyperkalemia, present on admission, acute. Resolved. - Initial labs showed serum potassium at 5.5 - 05/20/16 potassium was 3.6 - 30 mg Kayexalate PO was given once on 05/19/16 9. Hypertension, chronic, present on admission. Well-controlled. - Continued Metoprolol succinate 50 mg BID 10 History of coronary artery disease status post left anterior descending stent , chronic - Initial labs showed mildly elevated troponin - EKG showed no significant ST changes - Troponin trended down - Continued Clopidogrel 75 mg twice per day Exam Vital Signs (Last) Date Time Temp Pulse Resp B/P Pulse Ox O2 Delivery O2 Flow Rate FiO2 05/23/16 08:58 37.0 65 20 140/78 97 Room Air 05/19/16 08:53 2.00 Exam General: Moderate distress, obese, well-developed, well-nourished, appropriately interactive HEENT: Normocephalic, atraumatic. External ears without defect. Pupils equal, round, and reactive to light and accommodation. Anicteric sclerae, Mucosa moist and pink Neck: Supple with full range of motion. No jugular venous distension. No bruits. No lymphadenopathy or thyromegaly. Cardiovascular: Regular rate and rhythm with no murmurs, rubs, or gallops appreciated, Pulmonary: Wide A-P diameter, Clear to auscultation bilaterally. No wheezes, no wheezes or rhonchi. Normal respiratory effort with no use of accessory muscles. Abdomen: Bowel tones present. Soft, obese, nontender, nondistended. No hepatosplenomegaly or masses appreciated. Erythema present over pannus Extremities: No clubbing, cyanosis, edema, or lymphadenopathy appreciated. Skin: Normal temperature, turgor, and texture; no rash, ulcers, or subcutaneous nodules appreciated. Neurological: Cranial nerves grossly intact. Normal muscle strength, tone, and bulk. Reflexes, coordination, and sensory function within normal limits. No known gait impairment. Psychiatric: Normal mood and affect. Alert and oriented to person, place, and time. Test 05/18/16 10:26 05/18/16 11:15 05/18/16 13:35 05/18/16 14:21 Troponin T 0.013ug/L (0.0-0.011) Urine Color Yellow (YELLOW) Urine Appearance Hazy (CLEAR,HAZY) Urine pH 5.0 (5.0-8.0) Urine Specific Solo 1.030 (1.003-1.035) Urine Protein 30mg/dL (NEG,TRACE) Urine Glucose (UA) Negativemg/dL (NEGATIVE) Urine Ketones Negativemg/dL (NEGATIVE) Urine Occult Blood Small (NEGATIVE) Urine Nitrite Negative (NEGATIVE) Urine Bilirubin Negative (NEGATIVE) Urine Urobilinogen Normalmg/dL (NORMAL) Urine Leukocyte Esterase Trace (NEGATIVE) Urine RBC 3-10/hpf (0-2) Urine WBC 6-10/hpf (0-5) Urine Epithelial Cells Occasional/hpf (NONE-MOD) Urine Crystals None seen (NONE SEEN) Urine Bacteria Moderate/hpf (NONE-FEW) Urine Hyaline Casts None/lpf (NONE) Urine Granular Casts None seen (NONE SEEN) Urine Waxy Casts None seen (NONE SEEN) Urine Red Blood Cell Casts None seen (NONE SEEN) Urine White Blood Cell Casts None seen (NONE SEEN) Urine Mucus None seen (None Seen) Urine Trichomonas None seen (NONE SEEN) Urine Yeast None (NONE SEEN) Urinalysis Comment None Urine Culture Reflexed Indicated Urine Random Creatinine 376mg/dL (22-328) Urine Random Total Protein 126mg/dL (0-15) Urine Random Sodium 18mEq/L Urine Random Potassium 36.5mEq/L Urine Opiates Screen Negative Urine Methadone Screen Negative Urine Barbiturates Screen Negative Urine Amphetamines Screen Negative Urine Benzodiazepines Screen Negative Urine Cocaine Metabolite Screen Negative Urine Cannabinoids Screen Negative Urine Osmolality 384mOs/kH2O (250-1200) Osmolality 345 (275-300) Lactic Acid Level 0.8mmol/L (0.4-2.0) Total Creatine Kinase 75U/L (21-232) Test 05/18/16 16:03 05/19/16 02:50 05/19/16 22:14 05/21/16 03:35 Erythrocyte Sedimentation Rate 44mm/hr (0-30) Uric Acid 9.2mg/dL (2.6-7.2) Prostate Specific Antigen 2.9ng/mL (0.0-4.0) Free Prostate Specific Antigen 1.52ng/mL (N/A) Percent Free Prostate Specific Ag 52.4% (.) Complement C4 39mg/dL (14-44) Hepatitis A IgM Antibody Negative (Negative) Hepatitis B Surface Antigen Negative (Negative) Hepatitis B Core IgM Antibody Negative (Negative) Hepatitis C Antibody <0.1s/co ratio (0.0-0.9) Hepatitis C Comment Comment (.) Hemoglobin A1c 6.4% (4.8-5.6) Procalcitonin 0.15ng/mL (0.00-0.08) Hold Gardiner Top Tube Received (Received) Prealbumin 16mg/dL (20-40) Test 05/22/16 03:20 05/23/16 03:50 Magnesium Level 1.6mg/dL (1.6-2.6) White Blood Count 8.1th/mm3 (3.8-10.1) Red Blood Count 3.83mil/mm3 (4.40-5.80) Hemoglobin 11.3g/dL (13.8-17.2) Hematocrit 34.5% (41.0-50.0) Mean Corpuscular Volume 90.1fL (81-100) Mean Corpuscular Hemoglobin 29.5pg (27.0-35.0) Mean Corpuscular Hemoglobin Concent 32.8% (32.0-37.0) Red Cell Distribution Width 13.9% (12.3-15.4) Platelet Count 176bil/L (150-400) Neutrophils (%) (Auto) 55.8% (40-74) Lymphocytes (%) (Auto) 31.3% (14-46) Monocytes (%) (Auto) 9.5% (4-12) Eosinophils (%) (Auto) 2.9% (0-5) Basophils (%) (Auto) 0.1% (0-3) Sodium Level 148mEq/L (134-144) Potassium Level 3.5mEq/L (3.5-5.2) Chloride Level 115mEq/L (97-108) Carbon Dioxide Level 18mmol/L (18-29) Blood Urea Nitrogen 26mg/dL (8-27) Creatinine 1.85mg/dL (0.76-1.27) Estimat Glomerular Filtration Rate 39mL/min (>59) Glucose Level 103mg/dL (60-99) Calcium Level 8.0mg/dL (8.5-10.1) Phosphorus Level 2.0mg/dL (2.5-4.9) Total Bilirubin 0.2mg/dL (0.0-1.2) Aspartate Amino Transf (AST/SGOT) 25U/L (0-50) Alanine Aminotransferase (ALT/SGPT) 23U/L (0-44) Alkaline Phosphatase 83U/L (25-160) Total Protein 6.8g/dL (6.4-8.4) Albumin 3.2g/dL (3.4-5.0) Discharge Medications Discharge Medications Aspirin (Aspirin) 325 Mg Tablet 325 MG PO DAILY Prescribed by: TRAY ALEJANDRA MD Atorvastatin (Lipitor) 10 Mg/1 Tab Tablet 40 MG PO HS Prescribed by: RISA LICEA DO Clopidogrel (Clopidogrel) 75 Mg Tablet 75 MG PO DAILY Prescribed by: TRAY ALEJANDRA MD Lisinopril (Lisinopril) 10 Mg Tablet 10 MG PO DAILY (Reported) Metoprolol Succinate ER (Metoprolol Succinate ER) 50 Mg Tab.er.24h 50 MG PO DAILY Prescribed by: TRAY ALEJANDRA MD Metronidazole (Flagyl) 500 Mg Tablet 500 MG PO Q8 Prescribed by: LUCILLE GALLOWAY DO As needed Albuterol HFA (Proair HFA) 8.5 Gm Hfa.aer.ad 2 PUFFS INH Q4H PRN PRN For Wheezing (Reported) Hydrocodone-Acetaminophen 5-325 mg (Hydrocodone-Acetaminophen 5-325 mg) 1 Each Tablet 2 TAB PO QID PRN PRN For Pain (Reported) Miscellaneous Medications Ferrous Sulfate (Iron) 325 Mg Capsule.er 325 MG PO (Reported) Followup Plan Discharge Diet: Heart Healthy Discharge Activity: Limited until seen by PCP Patient Instructions Continue to take the metronidazole antibiotics for your diarrhea for 7 more days starting today when you get home. Do not drink alcohol while taking this medication. It is important that you continue to take all of the antibiotics. Remember to wash your hands after you use the bathroom with soap and water. People who come in contact with you should also wash their hands with soap and water. I have sent the metronidazole to the pharmacy for you. Continue all other medications as prescribed. Make sure you eat 3 meals each day and drink a lot of water throughout the day. Try to drink at least 8 glasses of water each day. Make sure to follow up with your primary care provider within 1 week to review your medications and your health. Return to the hospital if your appetite decreases, you are not eating or drinking anything, you have abdominal pain, or have decreased urination. Follow-up Provider: Luz Helton MD Follow-up with PCP in: 1 week Time spent Greater than 30 minutes was spent on discharge with greater than 50% of that time dedicated to patient counseling and coordination of care. . Attending Statement The patient was seen and examined together with Dr. Galloway on 05/23/2016 and I agree with the history, exam and plan as outlined in the note above. . copies to: Luz Helton MD, Marissa L DO May 23, 2016 20:28 Benjamin Scott MD May 24, 2016 08:36
== END 2016-05-23 09:56 | disposition home or self-care (01) | DRG 683 ==
LOC: SED 09:53 → PCC 13:15
PROVIDERS: ADMIT Internal Medicine; ATTEND Internal Medicine
PROC: 4A033R1 Measurement of Arterial Saturation, Peripheral, Percutaneous Approach (ICD-10-PCS; principal; 2016-05-18)
DX: N17.0 Acute kidney failure with tubular necrosis (principal); E87.0 Hyperosmolality and hypernatremia; E87.2 Acidosis; I13.0 Hypertensive heart and chronic kidney disease with heart failure and stage 1 through stage 4 chronic kidney disease, or unspecified chronic kidney disease; I50.30 Unspecified diastolic (congestive) heart failure; N39.0 Urinary tract infection, site not specified; A04.7 Enterocolitis due to Clostridium difficile; E11.9 Type 2 diabetes mellitus without complications; G47.33 Obstructive sleep apnea (adult) (pediatric); I25.10 Atherosclerotic heart disease of native coronary artery without angina pectoris; E87.5 Hyperkalemia; N18.9 Chronic kidney disease, unspecified; Z87.891 Personal history of nicotine dependence; N20.0 Calculus of kidney; L30.4 Erythema intertrigo